=== PATIENT | female | born 1940 | race Caucasian/White ===

== ENCOUNTER 2016-11-05 08:18 | Emergency (ER) | payer OTHER ==
[2016-11-05] MEDS ORDERED: EPINEPHrine Inj (1:1,000) 1 mg/ml amp ONE (08:20)
[2016-11-05] MEDS ORDERED: DEXAMETHASONE PF 10 MG/1 ML VIAL ONE (08:21)
[2016-11-05] MEDS ORDERED: FAMOTIDINE 20 MG/2 ML VIAL IVP ONE (08:22)
[2016-11-05] MEDS ORDERED: diphenhydrAMINE 50 MG/1 ML VIAL ONE (08:22)
[2016-11-05] MEDS ORDERED: IPRATROPIUM/ALBUTEROL SULFATE 3 ML NEB NEB ONE ×2 (08:25→08:27)
[2016-11-05] MEDS ORDERED: Sodium Chloride 0.9% 1,000 ML PRIMARY IV ONE (08:25)
[2016-11-05] MEDS ORDERED: DEXAMETHASONE SOD PHOSPHATE 4 MG/1 ML VIAL IVP ONE (08:25)
[2016-11-05] MEDS ORDERED: EPINEPHrine Inj (1:1,000) 1 mg/ml amp SUBCUT ONE (08:25)
[2016-11-05] MEDS ORDERED: Famotidine Inj 20 MG in Normal Saline Flush 10 ML IVP ONE (08:25)
[2016-11-05] MEDS ORDERED: diphenhydrAMINE 50 MG/1 ML VIAL IVP ONE (08:25)
--- NOTE | 2016-11-05 08:33 | PDOC ---
Allergy Symptoms HPI - General Chief Complaint: Allergic Reaction/Anaphylaxis Stated Complaint: allergic reaction Date Seen by Provider: 11/05/16 Time Seen by Provider: 08:29 Source: POSITIVE: Patient, Spouse Exam Limitations: POSITIVE: Clinical condition Nurse's Notes Reviewed & Considered: Yes - Record Incomplete EMS Report Reviewed & Considered: Verbal - History of Present Illness Initial Comments: Patient comes in acutely with respiratory distress. At 07 100 this morning patient took Mucinex DM and immediately developed difficulty handling her secretions, difficulty swallowing, shortness of breath, and respiratory distress. She has a history of recent CVA and carotid endarterectomy in November 2015, and his unable to communicate adequately the events that have transpired this morning. Her has come in and provided most of the information that I have. She has had recent congestion and cough and she was on the computer looking up medicine that would help was directed toward Mucinex DM, so she obtained that M took a dose this morning with near disasterous results. Patient's face is flushed, she is drooling, grunting, and very anxious. reports she has had a cough. Timing: REPORTS: Abrupt Duration: 1 hour Severity: Severe Associated Symptoms: REPORTS: Sev. 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 Any Prior Injuries Related to Current Complaint?: No - Patient Home Medications Home Medications: Home Medications ALPRAZolam Tab [Xanax Tab] 0.25 mg PO TID 03/19/16 Acetaminophen [Arthritis Pain Relief] 1,300 mg PO BID 03/19/16 Amitriptyline HCl 10 mg PO DAILY 03/19/16 Aspirin [Aspir 81] 0.5 tab PO DAILY 03/19/16 Carboxymethylcell/Glycerin/Pf [Optive Sensitive Eye Drops] 1 each OP DAILY 03/19 Glucosam/Chond/Hyalu/Cf Borate [Move Free Joint Health Tablet] 1 each PO DAILY 03/19/16 Lisinopril [Prinivil Tab] 10 mg PO DAILY 03/19/16 Magnesium Hydroxide [Milk of Magnesia] 3 tsp PO DAILY 03/19/16 Pravastatin Sodium [Pravachol] 40 mg PO DAILY 03/19/16 Psyllium Husk (with Sugar) [Metamucil Packet] 1 tsp PO DAILY 03/19/16 Escitalopram Oxalate [Lexapro] 5 mg PO DAILY 11/05/16 - Patient Allergies Allergies/Adverse Reactions: Allergies Allergy/AdvReac Type Severity Reaction Status Date / Time dextromethorphan HBr Allergy Severe Anaphylaxis Verified 11/05/16 08:34 [From Mucinex DM] guaifenesin [From Mucinex DM] Allergy Severe Anaphylaxis Verified 11/05/16 08:34 minocycline Allergy Unknown UNKNOWN Verified 11/05/16 08:34 Past Medical History - heen HEENT History: Denies History Cardiovascular History: Hypertension, Hyperlipidemia, Other (please comment) Additional Cardiovasular History: CAROTID ENDARTERECTOMY Respiratory History: Denies History Gastrointestinal History: Denies History Genitourinary History: Denies History Endocrine History: Denies History Musculoskeletal History: Arthritis Prosthesis or Implant: No Neurological History: TIA Blood Disorders: Denies History Psychiatric History: Anixety Disorders History of Sexually Transmitted Diseases: No Cancer History: Denies History History of MDRO: No History of Other Communicable Diseases: No Alcohol Use: None Substance Use Type: None Previous Surgical History: Yes Type / Date of Surgery: CAROTID ENDARTERECTOMY, BACK SURGERY, HYSTERECTOMY, LEFT KNEE SURGERY x3 Anesthesia Reactions: No Malignant Hyperthermia: No Significant Family History: No pertinent family hx ROS - Limitations ROS Limitations: Clinical Condition (I am unable to obtain review of systems because of the patient's inability to communicate secondary to her drooling and her CVA.), Physical Impairment Allergy Symptoms Physical Exam - General Appearance General Appearance: POSITIVE: Alert, Anxious, Severe Distress - HEENT Head / Face: POSITIVE: Atraumatic, Normal Inspection, No Facial Swelling, Facial Erythema Eyes: POSITIVE: Inspection Normal, PERRL, EOM's Intact, Eyelids Uninjured Ears: POSITIVE: Ears Normal Inspection, Auricle Normal Nose: POSITIVE: No Apparent Trauma, Nares Normal, Rhinorrhea, Nasal Flaring, Mucosal Erythema Oropharynx: POSITIVE: Airway Intact, Moist Mucous Membranes, Pharyngeal Erythema , Increase Saliva Secretion, Poor Secretion Handling, Drooling, Mucosal Edema Dental: POSITIVE: No Dental Injury - Pupils Pupil Size: 5 mm: Bilateral - Neck Neck: POSITIVE: Normal Inspection, No Apparent Injury - Respiratory Respiratory: POSITIVE: Respiratory Distress, Accessory Muscle Use, Decreased Air Entry, Rhonchi - Cardiovascular Cardiovascular: POSITIVE: Heart Sounds Normal, Tachycardia - Abdomen Abdomen: Soft: (All Quadrants), Normal Bowel Sounds: (All Quadrants), Denies Tenderness: (All Quadrants) - Skin Skin: POSITIVE: Intact, Warm, Erythema - Extremities Extremity: Non-Tender: (All Extremities), Normal ROM: (All Extremities), Normal Inspection: (All Extremities) - Neurological / Psychological Neurological: POSITIVE: Oriented X3 Allergy Symptoms Progress - Results Reviewed by Me Xrays/CTs/US Reviewed by me: Yes Discussed with Radiologist: No Lab Results Reviewed: Yes Lab Results:: Laboratory Results 11/05/16 11/05/16 Range/Units 08:40 08:42 WBC 8.13 (4.8-10.8) 10^3/uL RBC 3.84 L (4.20-5.40) 10^6/uL Hgb 12.5 (12.0-16.0) g/dL Hct 37.8 (37.0-47.0) % MCV 98.4 (81-99) FL MCH 32.6 H (27-31) PG MCHC 33.1 (33-37) g/dL RDW Std Deviation 47.4 (39-50) fL RDW Coeff of Marquis 13.3 (11.5-14.5) % Plt Count 342 (140-350) 10*3/uL MPV 8.9 (7.4-12.2) FL Immature Gran % (Auto) 0.4 (0-5) % Neut % (Auto) 46.9 L (50-80) % Lymph % (Auto) 41.0 (10-50) % [place] % (Auto) 9.3 (5-15) % Eos % (Auto) 1.4 (0-8) % Baso % (Auto) 1.0 (0-1) % Immature Gran # (Auto) 0.03 10*3/UL Neut # (Auto) 3.82 10*3/UL Lymph # (Auto) 3.33 10*3/uL [place] # (Auto) 0.76 (0.3-0.8) 10*3/UL Eos # (Auto) 0.11 10*3/UL Baso # (Auto) 0.08 10*3/UL WBC Morphology Comment Normal morphology (NORM) Plt Morphology Comment Normal morphology (NORM) RBC Morph Comment Normal morphology (NORM) VBG pH 7.30 L (7.32-7.42) VBG pCO2 44 L (45-55) mmHg VBG HCO3 22 (22-26) mmol/L VBG Base Excess -5 L (-2-2) MMOL/L Sodium 138 (135-145) meq/L Potassium 3.3 L (3.8-5.2) meq/L Chloride 104 (98-112) meq/L Carbon Dioxide 23 (23-33) meq/L Anion Gap 11 (5-20) BUN 17 (7-22) mg/dL Creatinine 0.6 (0.50-1.20) mg/dL Estimated GFR (>60 ml/min/1.73m(2)) BUN/Creatinine Ratio 28.33 H (6-20) Glucose 188 H (78-110) mg/dL Calculated Osmolality 292.0 (267-292) mOsm/kg Calcium 8.4 L (8.7-10.7) mg/dL Magnesium 1.8 (1.6-2.4) mg/dL Total Bilirubin 0.7 (0.3-1.2) mg/dL AST 22 (8-39) IU/L ALT 33 (9-52) IU/L Alkaline Phosphatase 80 (38-126) IU/L Total Protein 6.9 (6.1-8.0) g/dL Albumin 3.9 (3.5-4.8) g/dL Globulin 2.9 (2.50-4.10) g/dL Albumin/Globulin Ratio 1.30 (1.3-2.0) mg/g - Treatment Treatment: POSITIVE: Oxygen, IV Fluids, Diphenhydramine, Epinephrine, Dexamethasone, Famotidine, Other (duoneb and saline neb.) - Patient's Progress Pain Medication Addressed: POSITIVE: Not Applicable Re-examine Time: 08:57 (respiratory distess resolved.) Status: POSITIVE: Improved MDM / ED Course: Patient brought back to the emergency department examined, IV was started drawn and sent to lab for studies, portable x-ray was obtained. Medications included subcutaneous epinephrine, Benadryl 50 mg, dexamethasone 10 mg, Pepcid 20 mg. Her symptoms rapidly improved with decreased anxiety, resolution of her facial erythema, resolution of her drooling. Results: Chest x-ray as read by me shows no acute cardiopulmonary decompensation. Laboratory findings: VBG shows pH of 7.30, base excess -5. Assessment: Allergic reaction to Mucinex DM. Plan: Discharge home. - Consult Counseled: POSITIVE: Patient, Family, RE: Lab Results, RE: Radiology Results, RE : DX Patient Care Time - Estimated PCT Patient Care Time (In Minutes): 30 Vital Signs - VS Reviewed Vital Signs Reviewed: Yes Discharge Clinical Impression: Anaphylaxis Discharge Disposition: Discharged to Home Condition: Stable Patient Instructions Given at Discharge: Anaphylaxis (ED)
[2016-11-05] MEDS ORDERED: SODIUM CL 0.9% FOR INH 3 ML NEB NEB ONE (08:35)
[2016-11-05 08:44] LABS: BASOPHILS # (AUTO) 0.08 10*3/UL; EOSINOPHILS % (AUTO) 1.4 % (0-8); HEMATOCRIT 37.8 % (37.0-47.0); HEMOGLOBIN 12.5 g/dL (12.0-16.0); IMM GRAN % (AUTO) 0.4 % (0-5); IMM GRAN# (AUTO) 0.03 10*3/UL; LYMPHOCYTES # (AUTO) 3.33 10*3/uL; MEAN CORPUSCULAR HEMOGLOBIN 32.6 PG (27-31); MEAN CORPUSCULAR HGB CONC 33.1 g/dL (33-37); MEAN PLATELET VOLUME 8.9 FL (7.4-12.2); MONOCYTES # (AUTO) 0.76 10*3/UL (0.3-0.8); MONOCYTES % (AUTO) 9.3 % (5-15); NEUTROPHILS # (AUTO) 3.82 10*3/UL; NEUTROPHILS % (AUTO) 46.9 % (50-80); RDW COEFFICIENT OF VARIATION 13.3 % (11.5-14.5); RED BLOOD COUNT 3.84 10^6/uL (4.20-5.40); WHITE BLOOD COUNT 8.13 10^3/uL (4.8-10.8)
[2016-11-05 08:47] LABS: PLATELET MORPHOLOGY COMMENT NORMAL MORPHOLOGY (NORM)
[2016-11-05 08:57] LABS: BILIRUBIN,TOTAL 0.7 mg/dL (0.3-1.2); BUN/CREATININE RATIO 28.33 (6-20); CALCIUM 8.4 mg/dL (8.7-10.7); CREATININE 0.6 mg/dL (0.50-1.20); MAGNESIUM 1.8 mg/dL (1.6-2.4); POTASSIUM 3.3 meq/L (3.8-5.2); TOTAL PROTEIN 6.9 g/dL (6.1-8.0)
[2016-11-05 09:20] VITALS: RESP 24; TEMP 98.3
--- NOTE | 2016-11-05 10:05 | DI ---
HISTORY: Allergic reaction. FINDINGS/IMPRESSION: Suboptimal inspiration with low lung volumes. Minimal bibasilar atelectasis. Mild elevation of the left hemidiaphragm. Cardiac silhouette is not enlarged. No focal consolidatio n. No pneumothorax.
--- NOTE | 2016-11-05 22:12 | PDOC ---
Transfer of Care - Care Accepted Time Care Transferred: 09:00 Report from Transferring Physician Received: Yes (Dr. Nassar) MDM / ED Course: The patient presented to the emergency department with significant respiratory distress and swelling secondary to an allergic reaction from Mucinex DM. She received subcutaneous epinephrine as well as IV Decadron Benadryl and Pepcid. On arrival the patient was having significant respiratory distress and had notable swelling to her lips and was not controlling her secretions very well. She is significantly better after administration of medications and is back to baseline. She has no visible swelling at the time that I initially saw the patient. Vital signs are also stable at this time. Her blood work is all essentially unremarkable except for mildly elevated PCO2 and low pH on her initial presenting blood gas. Some of her lab work was pending at the time that care was transferred. Home Medications: Home Medications ALPRAZolam Tab [Xanax Tab] 0.25 mg PO TID 03/19/16 Acetaminophen [Arthritis Pain Relief] 1,300 mg PO BID 03/19/16 Amitriptyline HCl 10 mg PO DAILY 03/19/16 Aspirin [Aspir 81] 0.5 tab PO DAILY 03/19/16 Carboxymethylcell/Glycerin/Pf [Optive Sensitive Eye Drops] 1 each OP DAILY 03/19 Glucosam/Chond/Hyalu/Cf Borate [Move Free Joint Health Tablet] 1 each PO DAILY 03/19/16 Lisinopril [Prinivil Tab] 10 mg PO DAILY 03/19/16 Magnesium Hydroxide [Milk of Magnesia] 3 tsp PO DAILY 03/19/16 Pravastatin Sodium [Pravachol] 40 mg PO DAILY 03/19/16 Psyllium Husk (with Sugar) [Metamucil Packet] 1 tsp PO DAILY 03/19/16 Escitalopram Oxalate [Lexapro] 5 mg PO DAILY 11/05/16 predniSONE Tab [Deltasone Tab] 40 mg PO DAILY #10 tab 11/05/16 Allergies/Adverse Reactions: Allergies dextromethorphan HBr [From Mucinex DM] Allergy (Severe, Verified 11/05/16 08:34) Anaphylaxis guaifenesin [From Mucinex DM] Allergy (Severe, Verified 11/05/16 08:34) Anaphylaxis minocycline Allergy (Unknown, Verified 11/05/16 08:34) UNKNOWN Vital Signs Reviewed: Yes Nurse's Notes Reviewed & Considered: Yes - Pending Patient Care Items Pending Patient Care Items: POSITIVE: Labs - Expected Patient Outcome Expected Disposition: POSITIVE: Home - Re-Evaluation of Patient Re-Examine Time:: 09:30 Disposition of Patient: POSITIVE: Discharged Counseled: POSITIVE: Patient, Family, RE: Lab Results, RE: DX, RE: Need for F/U - Results Reviewed Lab Results Reviewed by Me: Yes Lab Results: Laboratory Results 11/05/16 11/05/16 Range/Units 08:40 08:42 WBC 8.13 (4.8-10.8) 10^3/uL RBC 3.84 L (4.20-5.40) 10^6/uL Hgb 12.5 (12.0-16.0) g/dL Hct 37.8 (37.0-47.0) % MCV 98.4 (81-99) FL MCH 32.6 H (27-31) PG MCHC 33.1 (33-37) g/dL RDW Std Deviation 47.4 (39-50) fL RDW Coeff of [place]quis 13.3 (11.5-14.5) % Plt Count 342 (140-350) 10*3/uL MPV 8.9 (7.4-12.2) FL Immature Gran % (Auto) 0.4 (0-5) % Neut % (Auto) 46.9 L (50-80) % Lymph % (Auto) 41.0 (10-50) % [place] % (Auto) 9.3 (5-15) % Eos % (Auto) 1.4 (0-8) % Baso % (Auto) 1.0 (0-1) % Immature Gran # (Auto) 0.03 10*3/UL Neut # (Auto) 3.82 10*3/UL Lymph # (Auto) 3.33 10*3/uL [place] # (Auto) 0.76 (0.3-0.8) 10*3/UL Eos # (Auto) 0.11 10*3/UL Baso # (Auto) 0.08 10*3/UL WBC Morphology Comment Normal morphology (NORM) Plt Morphology Comment Normal morphology (NORM) RBC Morph Comment Normal morphology (NORM) VBG pH 7.30 L (7.32-7.42) VBG pCO2 44 L (45-55) mmHg VBG HCO3 22 (22-26) mmol/L VBG Base Excess -5 L (-2-2) MMOL/L Sodium 138 (135-145) meq/L Potassium 3.3 L (3.8-5.2) meq/L Chloride 104 (98-112) meq/L Carbon Dioxide 23 (23-33) meq/L Anion Gap 11 (5-20) BUN 17 (7-22) mg/dL Creatinine 0.6 (0.50-1.20) mg/dL Estimated GFR (>60 ml/min/1.73m(2)) BUN/Creatinine Ratio 28.33 H (6-20) Glucose 188 H (78-110) mg/dL Calculated Osmolality 292.0 (267-292) mOsm/kg Lactic Acid 2.2 H (0.70-2.10) MMOL/L Calcium 8.4 L (8.7-10.7) mg/dL Magnesium 1.8 (1.6-2.4) mg/dL Total Bilirubin 0.7 (0.3-1.2) mg/dL AST 22 (8-39) IU/L ALT 33 (9-52) IU/L Alkaline Phosphatase 80 (38-126) IU/L Total Protein 6.9 (6.1-8.0) g/dL Albumin 3.9 (3.5-4.8) g/dL Globulin 2.9 (2.50-4.10) g/dL Albumin/Globulin Ratio 1.30 (1.3-2.0) mg/g - Consult Recommendations:: The patient presented with significant allergic reaction/anaphylaxis which has currently resolved clinically. She was advised to discontinue use of Mucinex DM as this was the likely cause of her allergic reaction. She will be continued on a 5 day course of prednisone and was advised to use Benadryl as needed for itching. She is advised return to the emergency room if she develops any recurrent difficulty breathing or facial swelling. Patient Care Time - Estimated PCT Patient Care Time (In Minutes): 10 Vital Signs - VS Reviewed Vital Signs Reviewed: Yes Discharge Clinical Impression: Anaphylaxis Condition: Stable Prescriptions / Orders: predniSONE Tab [Deltasone Tab] 40 mg PO DAILY #10 tab Patient Instructions Given at Discharge: Anaphylaxis (ED) Additional Instructions: The symptoms you're experiencing were secondary to an allergic reaction to the Mucinex DM. This should be listed as an allergy and should not be taken in the future. You have been prescribed prednisone 20 mg tablets, 2 tablets or 40 mg daily for 5 days. In addition you can take Benadryl 25 mg, one or 2 every 4-6 hours as needed for itching. Return to the emergency room if increased difficulty breathing, any worsening or change in symptoms. Follow-up with primary care as needed. Follow Up With: NONE,NONE [Primary Care Provider] -
== END 2016-11-05 10:30 | disposition home or self-care (01) ==
LOC: ER 08:18
DX: T88.6XXA Anaphylactic reaction due to adverse effect of correct drug or medicament properly administered, initial encounter (principal); T48.4X5A Adverse effect of expectorants, initial encounter; R13.19 Other dysphagia; R06.02 Shortness of breath; Z86.73 Personal history of transient ischemic attack (TIA), and cerebral infarction without residual deficits
CPT/HCPCS: 36415 ×2; 71010; 80053; 82803; 83605; 83735; 85025; 94640; 96361; 96374; 96375; 99284 ×2; J1200; J7620; J1100; J7030

== ENCOUNTER 2017-03-01 19:46 | Emergency (ER) | payer OTHER ==
[2017-03-01] MEDS ORDERED: Sodium Chloride 0.9% 1,000 ML PRIMARY IV ONE (20:01)
[2017-03-01] MEDS ORDERED: NORMAL SALINE 10 ML SYRINGE FLUSH IVP PRN (20:01)
[2017-03-01 20:08] LABS: BASOPHILS # (AUTO) 0.13 10*3/UL; BASOPHILS % (AUTO) 1.6 % (0-1); EOSINOPHILS # (AUTO) 0.28 10*3/UL; EOSINOPHILS % (AUTO) 3.3 % (0-8); HEMATOCRIT 40.7 % (37.0-47.0); HEMOGLOBIN 13.1 g/dL (12.0-16.0); LYMPHOCYTES # (AUTO) 2.74 10*3/uL; MEAN CORPUSCULAR HEMOGLOBIN 31.9 PG (27-31); MEAN CORPUSCULAR HGB CONC 32.2 g/dL (33-37); MEAN PLATELET VOLUME 9.2 FL (7.4-12.2); MONOCYTES # (AUTO) 0.91 10*3/UL (0.3-0.8); MONOCYTES % (AUTO) 10.9 % (5-15); NEUTROPHILS # (AUTO) 4.31 10*3/UL; NEUTROPHILS % (AUTO) 51.4 % (50-80); RED BLOOD COUNT 4.11 10^6/uL (4.20-5.40)
[2017-03-01 20:09] LABS: PLATELET MORPHOLOGY COMMENT NORMAL MORPHOLOGY (NORM); RBC MORPHOLOGY COMMENT NORMAL MORPHOLOGY (NORM); WBC MORPHOLOGY COMMENT NORMAL MORPHOLOGY (NORM)
[2017-03-01 20:18] LABS: BLOOD UREA NITROGEN 28 mg/dL (7-22); BUN/CREATININE RATIO 46.66 (6-20); C-REACTIVE PROTEIN < 0.5 mg/dL (0.0-0.9); CALCIUM 9.7 mg/dL (8.7-10.7); MAGNESIUM 2.2 mg/dL (1.6-2.4); SERUM ALBUMIN 4.4 g/dL (3.5-4.8)
--- NOTE | 2017-03-01 20:40 | PDOC ---
General Adult HPI - General Chief Complaint: Respiratory Complaint Stated Complaint: CHOKING Date Seen by Provider: 03/01/17 Time Seen by Provider: 19:55 Source: POSITIVE: Patient, Spouse Exam Limitations: POSITIVE: Other (patient has limited ability to speak--use a note pad to write down respones) - History of Present Illness Initial Comment: The patient is a 76-year-old female who presents to the emergency department by ambulance after a choking episode. Her reports that she has a had a progressively worsening neurologic disorder of some kind that has affected her ability to swallow, affected her speech and general strength. She is seeing multiple specialists and does not have a specific diagnosis at this point. She is scheduled for some specialized testing via a neurologist in [place] on Saturday. She had been scheduled for a feeding tube placement last week however the doctors in [place] wanted to wait until she had this other testing done. Her reports that for the past couple of days she has not really been able to tolerate any type of solid foods very well. She has been sipping Ensure. He tried giving her a little bit of macaroni and cheese and she developed a choking episode. She was having a difficult time breathing and EMS was called. By the time EMS arrived she had suction herself and seemed to be breathing better. She states that she still has a slight foreign body sensation in her throat however she states that she gets this quite frequently even baseline. She denies any current pain or any other associated complaints. Have you received a tetanus shot in the past 10 years?: Unknown - Patient Home Medications Home Medications: Home Medications Acetaminophen [Arthritis Pain Relief] 1,300 mg PO BID 03/19/16 Amitriptyline HCl 10 mg PO DAILY 03/19/16 Aspirin [Aspir 81] 0.5 tab PO DAILY 03/19/16 Carboxymethylcell/Glycerin/Pf [Optive Sensitive Eye Drops] 1 each OP DAILY 03/19 Glucosam/Chond/Hyalu/Cf Borate [Move Free Joint Health Tablet] 1 each PO DAILY 03/19/16 Lisinopril [Prinivil Tab] 10 mg PO DAILY 03/19/16 Magnesium Hydroxide [Milk of Magnesia] 3 tsp PO DAILY 03/19/16 Escitalopram Oxalate [Lexapro] 5 mg PO DAILY 11/05/16 - Patient Allergies Allergies/Adverse Reactions: Allergies Allergy/AdvReac Type Severity Reaction Status Date / Time dextromethorphan HBr Allergy Severe Anaphylaxis Verified 03/01/17 20:07 [From Mucinex DM] guaifenesin [From Mucinex DM] Allergy Severe Anaphylaxis Verified 03/01/17 20:07 minocycline Allergy Unknown UNKNOWN Verified 03/01/17 20:07 Past Medical History - heen HEENT History: Denies History Additional HEENT History: WEARS GLASSES Cardiovascular History: Hypertension, Hyperlipidemia, Other (please comment) Additional Cardiovasular History: CAROTID ENDARTERECTOMY Respiratory History: Denies History Gastrointestinal History: Denies History Genitourinary History: Denies History Endocrine History: Denies History Musculoskeletal History: Arthritis Prosthesis or Implant: No Neurological History: TIA Blood Disorders: Denies History Psychiatric History: Anxiety Disorders History of Sexually Transmitted Diseases: No Cancer History: Denies History History of MDRO: No History of Other Communicable Diseases: No Alcohol Use: None Substance Use Type: None Previous Surgical History: Yes Type / Date of Surgery: CAROTID ENDARTERECTOMY, BACK SURGERY, HYSTERECTOMY, LEFT KNEE SURGERY x3 Anesthesia Reactions: No Malignant Hyperthermia: No Significant Family History: No pertinent family hx Past Medical History Reviewed: Reviewed - No Changes ROS - Limitations ROS Limitations: Other (please comment) (Patient has limited ability to speak, she does answer questions using a note pad and yes no answers) General Adult Progress - Results Reviewed by me Xrays/CTs/US Reviewed by me: Yes Radiology Findings: Portable chest x-ray shows normal lung jason, no acute abnormalities. Lab Results Reviewed: Yes Lab Results:: Laboratory Results 03/01/17 Range/Units 20:00 WBC 8.38 (4.8-10.8) 10^3/uL RBC 4.11 L (4.20-5.40) 10^6/uL Hgb 13.1 (12.0-16.0) g/dL Hct 40.7 (37.0-47.0) % MCV 99.0 (81-99) FL MCH 31.9 H (27-31) PG MCHC 32.2 L (33-37) g/dL RDW Std Deviation 45.3 (39-50) fL RDW Coeff of Marquis 12.8 (11.5-14.5) % Plt Count 333 (140-350) 10*3/uL MPV 9.2 (7.4-12.2) FL Immature Gran % (Auto) 0.1 (0-5) % Neut % (Auto) 51.4 (50-80) % Lymph % (Auto) 32.7 (10-50) % [place] % (Auto) 10.9 (5-15) % Eos % (Auto) 3.3 (0-8) % Baso % (Auto) 1.6 H (0-1) % Immature Gran # (Auto) 0.01 10*3/UL Neut # (Auto) 4.31 10*3/UL Lymph # (Auto) 2.74 10*3/uL [place] # (Auto) 0.91 H (0.3-0.8) 10*3/UL Eos # (Auto) 0.28 10*3/UL Baso # (Auto) 0.13 10*3/UL WBC Morphology Comment Normal morphology (NORM) Plt Morphology Comment Normal morphology (NORM) RBC Morph Comment Normal morphology (NORM) Sodium 141 (135-145) meq/L Potassium 4.4 (3.8-5.2) meq/L Chloride 101 (98-112) meq/L Carbon Dioxide 27 (23-33) meq/L Anion Gap 13 (5-20) BUN 28 H (7-22) mg/dL Creatinine 0.6 (0.50-1.20) mg/dL Estimated GFR (>60 ml/min/1.73m(2)) BUN/Creatinine Ratio 46.66 H (6-20) Glucose 140 H (78-110) mg/dL Calculated Osmolality 299.0 H (267-292) mOsm/kg Calcium 9.7 (8.7-10.7) mg/dL Magnesium 2.2 (1.6-2.4) mg/dL Total Bilirubin 0.4 (0.3-1.2) mg/dL AST 50 H (8-39) IU/L ALT 29 (9-52) IU/L Alkaline Phosphatase 97 (38-126) IU/L C-Reactive Protein < 0.5 (0.0-0.9) mg/dL Total Protein 8.0 (6.1-8.0) g/dL Albumin 4.4 (3.5-4.8) g/dL Globulin 3.6 (2.50-4.10) g/dL Albumin/Globulin Ratio 1.20 L (1.3-2.0) mg/g - Patient's Progress MDM / ED Course: By the time the patient arrived here in the emergency department she stated she was doing better. She still had some mild sensation that there might be something in her throat. Portable chest x-ray is unremarkable, oxygenation is good and she has good breath sounds bilaterally. Her lab work is essentially unremarkable except for mild dehydration. She did receive a 1 L bolus of normal saline. After labs and x-ray were completed the patient stated that she felt back to baseline. She was given some Ensure and was able to sit this without any problems and swallow it. At this point it appears that she had a choking episode likely secondary to her dysphasia. This seems to have resolved and she appears to be clinically stable at this time. She is scheduled for some specialized neurologic testing on Saturday which the neurologist wanted completed before she had a feeding tube placed. She was advised not to try any solid foods here over the weekend. She will continue Ensure for nutritional support. She is advised return to the emergency room she develops increased difficulty breathing, dehydration, fever or productive cough, any worsening or change in symptoms. - Consult Counseled: POSITIVE: Patient, Family, RE: Lab Results, RE: Radiology Results, RE : DX, RE: Need for F/U Patient Care Time - Estimated PCT Patient Care Time (In Minutes): 30 Vital Signs - VS Reviewed Vital Signs Reviewed: Yes Discharge Clinical Impression: Choking episode, Dysphagia Discharge Disposition: Discharged to Home Condition: Fair Patient Instructions Given at Discharge: Dysphagia (ED) Additional Instructions: The choking episode seems to have resolved. Her oxygenation is normal and her chest x-ray appears clear. She is able to swallow ensure at baseline levels. Recommend avoiding any attempts at solid foods here over the weekend. Continue nutritional support with ensure. Return to the emergency room if increased difficulty breathing, fever, productive cough, dehydration, any worsening or change in symptoms. Otherwise keep your appointment with the neurologist in [place] on Saturday for further specialized testing. She will likely need to consider a feeding tube given the degree of her swallowing difficulty and recent worsening. Follow Up With: NONE,NONE [Primary Care Provider] -
[2017-03-01 21:04] VITALS: RESP 18; TEMP 97.9
--- NOTE | 2017-03-02 12:14 | DI ---
AP CHEST X-RAY, 03/01/2017 7:01 PM : Clinical History: Choking episode Previous Exam: 11/05/2016. There is no acute soft tissue or bony abnormality. Heart size is normal. Lungs are clear. Mediastinal structures are normal. There are no pulmonary nodules. Reading: Normal chest x-ray. There has been no interval change.
== END 2017-03-01 20:54 | disposition home or self-care (01) ==
LOC: ER 19:46
DX: R13.19 Other dysphagia (principal); I10 Essential (primary) hypertension; E78.5 Hyperlipidemia, unspecified
CPT/HCPCS: 71010; 80053; 83735; 85025; 86140; 99283

== ENCOUNTER → 2017-03-22 | Outpatient (CLI) | payer OTHER ==
[2017-03-22 12:10] LABS: CALCIUM 9.8 mg/dL (8.7-10.7); SERUM ALBUMIN 3.8 g/dL (3.5-4.8)
== END ==
LOC: LAB 11:30
PROVIDERS: ATTEND Surgery
DX: R13.19 Other dysphagia (principal); G12.21 Amyotrophic lateral sclerosis
CPT/HCPCS: 36415; 80053

== ENCOUNTER → 2017-03-29 | Outpatient (CLI) | payer OTHER ==
[2017-03-29 13:32] LABS: BLOOD UREA NITROGEN 21 mg/dL (7-22); CALCIUM 9.2 mg/dL (8.7-10.7); SERUM ALBUMIN 3.7 g/dL (3.5-4.8)
== END ==
LOC: LAB 13:02
PROVIDERS: ATTEND Surgery
DX: R13.19 Other dysphagia (principal); G12.21 Amyotrophic lateral sclerosis
CPT/HCPCS: 36415; 80053

== ENCOUNTER → 2017-04-17 | Outpatient (CLI) | payer OTHER ==
[2017-04-17 15:21] LABS: BASOPHILS # (AUTO) 0.07 10*3/UL; BASOPHILS % (AUTO) 0.9 % (0-1); EOSINOPHILS # (AUTO) 0.18 10*3/UL; EOSINOPHILS % (AUTO) 2.4 % (0-8); HEMATOCRIT 38.6 % (37.0-47.0); HEMOGLOBIN 12.4 g/dL (12.0-16.0); LYMPHOCYTES # (AUTO) 1.86 10*3/uL; MEAN CORPUSCULAR HEMOGLOBIN 31.7 PG (27-31); MEAN CORPUSCULAR HGB CONC 32.1 g/dL (33-37); MEAN CORPUSCULAR VOLUME 98.7 FL (81-99); MEAN PLATELET VOLUME 9.2 FL (7.4-12.2); MONOCYTES # (AUTO) 0.85 10*3/UL (0.3-0.8); MONOCYTES % (AUTO) 11.2 % (5-15); NEUTROPHILS % (AUTO) 60.7 % (50-80); RED BLOOD COUNT 3.91 10^6/uL (4.20-5.40)
[2017-04-17 15:23] LABS: PLATELET MORPHOLOGY COMMENT NORMAL MORPHOLOGY (NORM); RBC MORPHOLOGY COMMENT NORMAL MORPHOLOGY (NORM); WBC MORPHOLOGY COMMENT NORMAL MORPHOLOGY (NORM)
[2017-04-17 15:30] LABS: CALCIUM 8.9 mg/dL (8.7-10.7); SERUM ALBUMIN 3.9 g/dL (3.5-4.8)
== END ==
LOC: LAB 15:06
PROVIDERS: ATTEND Internal Medicine
DX: Z79.899 Other long term (current) drug therapy (principal)
CPT/HCPCS: 36415; 80053; 85025

== ENCOUNTER 2017-05-05 10:43 | Emergency (ER) | payer OTHER ==
[2017-05-05] MEDS ORDERED: ALBUTEROL SULFATE 2.5 MG/3 ML NEB ONE ×2 (10:55→11:01)
[2017-05-05] MEDS ORDERED: NORMAL SALINE 10 ML SYRINGE FLUSH IVP PRN (10:55)
[2017-05-05] MEDS ORDERED: Sodium Chloride 0.9% 1,000 ML PRIMARY IV ONE (10:55)
[2017-05-05 11:12] LABS: BASOPHILS # (AUTO) 0.12 10*3/UL; BASOPHILS % (AUTO) 1.5 % (0-1); EOSINOPHILS # (AUTO) 0.13 10*3/UL; EOSINOPHILS % (AUTO) 1.6 % (0-8); HEMOGLOBIN 14.1 g/dL (12.0-16.0); LYMPHOCYTES # (AUTO) 2.15 10*3/uL; MEAN CORPUSCULAR HEMOGLOBIN 31.2 PG (27-31); MEAN CORPUSCULAR VOLUME 97.3 FL (81-99); MEAN PLATELET VOLUME 9.3 FL (7.4-12.2); MONOCYTES # (AUTO) 0.87 10*3/UL (0.3-0.8); MONOCYTES % (AUTO) 10.9 % (5-15); NEUTROPHILS # (AUTO) 4.66 10*3/UL; NEUTROPHILS % (AUTO) 58.6 % (50-80); PLATELET MORPHOLOGY COMMENT NORMAL MORPHOLOGY (NORM); RBC MORPHOLOGY COMMENT NORMAL MORPHOLOGY (NORM); RED BLOOD COUNT 4.52 10^6/uL (4.20-5.40); WBC MORPHOLOGY COMMENT NORMAL MORPHOLOGY (NORM)
[2017-05-05] MEDS ORDERED: SODIUM CL 0.9% FOR INH 3 ML NEB NEB ONE (11:16)
[2017-05-05 11:25] VITALS: RESP 30; TEMP 98
[2017-05-05 11:52] LABS: C-REACTIVE PROTEIN 1.1 mg/dL (0.0-0.9); CALCIUM 8.7 mg/dL (8.7-10.7); SERUM ALBUMIN 3.8 g/dL (3.5-4.8)
--- NOTE | 2017-05-05 12:03 | DI ---
AP CHEST X-RAY, 05/05/2017 9:55 AM : Clinical History: Cough. Difficulty breathing. Previous Exam: 03/01/2017. The film is obtained in a lordotic projection. There is no acute soft tissue or bony abnormality. Hea rt size is normal. Lungs are clear. Mediastinal structures are normal. There are no pulmonary nodules . Reading: Normal chest x-ray. There has been no interval change.
--- NOTE | 2017-05-05 16:03 | PDOC ---
Dyspnea HPI - General Chief Complaint: Respiratory Complaint Stated Complaint: HAVING TROUBLE BREATHING Date Seen by Provider: 05/05/17 Time Seen by Provider: 10:55 Source: POSITIVE: Patient, Spouse Exam Limitations: POSITIVE: Other (Patient cannot verbalize however is able to write and shake her head yes no) Treatment Prior to Arrival: REPORTS: None Nurse's Notes Reviewed & Considered: Yes - History of Present Illness Initial Comments: The patient is a 76-year-old female with a recent diagnosis of bulbar ALS who presents to the emergency department with increased difficulty breathing. Her reports that she coughed up some thick phlegm and subsequently developed difficulty breathing. She states that she feels like she is not getting a good breath and she has some rattling in her upper airway. She denies chest pain, fevers or chills or any other associated symptoms. She was recently diagnosed with bulbar ALS and has a PEG tube in place. She has been on several different medications to try and control her secretions however nothing seems to have helped. She does have suction at home however they do not do deep suctioning. - Patient Home Medications Home Medications: Home Medications Amitriptyline HCl 10 mg PO DAILY 03/19/16 Carboxymethylcell/Glycerin/Pf [Optive Sensitive Eye Drops] 1 each OP DAILY 03/19 Acetaminophen Liq [Tylenol Liq] 1,500 mg PO BID PRN 05/05/17 Amoxicillin/K Clav Susp [Augmentin Susp] 800 mg PEG BID #140 ml 05/05/17 Amoxicillin/K Clav Susp [Augmentin Susp] 800 mg PO BID #140 ml 05/05/17 - Patient Allergies Allergies/Adverse Reactions: Allergies Allergy/AdvReac Type Severity Reaction Status Date / Time minocycline Allergy Unknown UNKNOWN Verified 05/05/17 10:56 Past Medical History - heen HEENT History: Denies History Additional HEENT History: WEARS GLASSES Cardiovascular History: Hypertension, Hyperlipidemia, Other (please comment) Additional Cardiovasular History: CAROTID ENDARTERECTOMY Respiratory History: Denies History Gastrointestinal History: Denies History Genitourinary History: Denies History Endocrine History: Denies History Musculoskeletal History: Arthritis Prosthesis or Implant: No Additional Musculoskeletal History: ALS Neurological History: TIA, Other (please comment) Additional Neurological History: ALS Blood Disorders: Denies History Psychiatric History: Anxiety Disorders History of Sexually Transmitted Diseases: No Obstetrical History: Denies History Cancer History: Denies History In Past Year Been Physically Harmed or Verbally Threatened: No History of MDRO: No History of Other Communicable Diseases: No Tobacco Use: Never Smoker Alcohol Use: None Substance Use Type: None Previous Surgical History: Yes Type / Date of Surgery: CAROTID ENDARTERECTOMY, BACK SURGERY, HYSTERECTOMY, LEFT KNEE SURGERY x3 Anesthesia Reactions: No Malignant Hyperthermia: No Significant Family History: No pertinent family hx Past Medical History Reviewed: Reviewed - No Changes ROS - Limitations ROS Limitations: No Limitations Constitution: DENIES: Chills, Fever Cardiovascular: DENIES: Chest Pain Respiratory: REPORTS: Cough Productive, Shortness Of Breath. DENIES: Wheezing Neurological: DENIES: Headache Gastrointestinal: REPORTS: Denies GI Symptoms Dyspnea Physical Exam - General Appearance General Appearance: REPORTS: Alert, Cooperative, No Acute Distress - HEENT HEENT: POSITIVE: Head Inspection Nml, Eyes Inspection Nml, Ears Inspection Nml - Neck Neck: REPORTS: Normal Inspection - Respiratory Respiratory: REPORTS: Other (She does have upper airway rhonchi, respirations are unlabored) - Cardiovascular Cardiovascular: REPORTS: Regular Rate and Rhythm, Heart Sounds Normal Peripheral Pulses: Dorsalis-pedis (R): 2+, Dorsalis-pedis (L): 2+ - Abdomen Abdomen: Soft: (All Quadrants), Denies Tenderness: (All Quadrants), No Distention: (All Quadrants) - Extremities Extremity: Normal ROM: (All Extremities), Normal Inspection: (All Extremities) Dyspnea Progress - Results Reviewed by me Xrays/CTs/US Reviewed by me: Yes Discussed with Radiologist: Yes Radiology Findings: Chest x-ray is normal per radiologist. Lab Results Reviewed: Yes Lab Results:: Laboratory Results 05/05/17 Range/Units 11:08 WBC 7.96 (4.8-10.8) 10^3/uL RBC 4.52 (4.20-5.40) 10^6/uL Hgb 14.1 (12.0-16.0) g/dL Hct 44.0 (37.0-47.0) % MCV 97.3 (81-99) FL MCH 31.2 H (27-31) PG MCHC 32.0 L (33-37) g/dL RDW Std Deviation 47.2 (39-50) fL RDW Coeff of Marquis 13.4 (11.5-14.5) % Plt Count 353 H (140-350) 10*3/uL MPV 9.3 (7.4-12.2) FL Immature Gran % (Auto) 0.4 (0-5) % Neut % (Auto) 58.6 (50-80) % Lymph % (Auto) 27.0 (10-50) % Wake % (Auto) 10.9 (5-15) % Eos % (Auto) 1.6 (0-8) % Baso % (Auto) 1.5 H (0-1) % Immature Gran # (Auto) 0.03 10*3/UL Neut # (Auto) 4.66 10*3/UL Lymph # (Auto) 2.15 10*3/uL Wake # (Auto) 0.87 H (0.3-0.8) 10*3/UL Eos # (Auto) 0.13 10*3/UL Baso # (Auto) 0.12 10*3/UL WBC Morphology Comment Normal morphology (NORM) Plt Morphology Comment Normal morphology (NORM) RBC Morph Comment Normal morphology (NORM) D-Dimer 0.65 H (0.00-0.59) mg/L Sodium 140 (135-145) meq/L Potassium 4.4 (3.8-5.2) meq/L Chloride 104 (98-112) meq/L Carbon Dioxide 26 (23-33) meq/L Anion Gap 10 (5-20) BUN 22 (7-22) mg/dL Creatinine 0.5 (0.50-1.20) mg/dL Estimated GFR (>60 ml/min/1.73m(2)) BUN/Creatinine Ratio 44.00 H (6-20) Glucose 109 (78-110) mg/dL Calculated Osmolality 293.0 H (267-292) mOsm/kg Lactic Acid 1.7 (0.70-2.10) MMOL/L Calcium 8.7 (8.7-10.7) mg/dL Magnesium 2.0 (1.6-2.4) mg/dL Total Bilirubin 0.3 (0.3-1.2) mg/dL AST 26 (8-39) IU/L ALT 34 (9-52) IU/L Alkaline Phosphatase 106 (38-126) IU/L C-Reactive Protein 1.1 H (0.0-0.9) mg/dL Total Protein 6.9 (6.1-8.0) g/dL Albumin 3.8 (3.5-4.8) g/dL Globulin 3.1 (2.50-4.10) g/dL Albumin/Globulin Ratio 1.20 L (1.3-2.0) mg/g - Patient's Progress MDM / ED Course: On arrival the patient did have rhonchi that appeared to be originating from her upper airway. She did receive an albuterol neb treatment and also had some deep suctioning per respiratory which did help significantly. Her chest x-ray is clear. Her blood work is all essentially unremarkable. At this time it appears that she likely is aspirating secretions. She does not have any evidence of pneumonitis or pneumonia however it does seem that she likely aspirated this morning. She is feeling significantly better after suctioning. She is considered stable for discharge home. She was started on Augmentin 800 mg twice a day per PEG tube for 7 days for treatment of potential aspiration. She will return to the emergency room if she develops increased shortness of breath, fever, any worsening or change in symptoms. She is advised follow-up with primary care in 3-5 days. - Consult Counseled: POSITIVE: Patient, RE: Lab Results, RE: Radiology Results, RE: DX, RE : Need for F/U Patient Care Time - Estimated PCT Patient Care Time (In Minutes): 35 Vital Signs - Recent Vital Signs Vital Signs: Vital Signs (Last 8 hours) Temp Pulse Resp BP Pulse Ox 05/05/17 10:55 98 F 98 30 H 141/69 98 - VS Reviewed Vital Signs Reviewed: Yes Discharge Clinical Impression: Aspiration into airway, Amyotrophic lateral sclerosis Discharge Disposition: Discharged to Home Condition: Stable Prescriptions / Orders: Amoxicillin/K Clav Susp [Augmentin Susp] 800 mg PO BID #140 ml Amoxicillin/K Clav Susp [Augmentin Susp] 800 mg PEG BID #140 ml Additional Instructions: It is suspected that Khushi has aspirated some secretions into her airway. Her airway was suctioned and she appears to be doing well at this time. Oxygen levels are normal. It is unclear if any of this was aspirated into the lower lung. None of this was visible on the x-ray currently however she will be started on Augmentin 400 mg per teaspoon, 2 teaspoons (10 mL) twice a day for 7 days. Recommend returning to the emergency room if increased difficulty breathing, fever, any worsening or change in symptoms. Follow-up with primary care in 3-5 days. Follow Up With: MICHELLE MANCIA [Primary Care Provider] -
== END 2017-05-05 12:22 | disposition home or self-care (01) ==
LOC: ER 10:43
DX: T17.818A Gastric contents in other parts of respiratory tract causing other injury, initial encounter (principal); G12.21 Amyotrophic lateral sclerosis; R05 Cough; R06.02 Shortness of breath; R06.00 Dyspnea, unspecified
CPT/HCPCS: 71010; 80053; 83605; 83735; 85025; 85379; 86140; 94640; 99283

== ENCOUNTER 2017-05-13 09:16 | Emergency (ER) | payer OTHER ==
[2017-05-13] MEDS ORDERED: NORMAL SALINE 10 ML SYRINGE FLUSH IVP PRN (09:31)
[2017-05-13] MEDS ORDERED: Sodium Chloride 0.9% 1,000 ML PRIMARY IV ONE (09:31)
--- NOTE | 2017-05-13 09:37 | PDOC ---
Nausea/Vomiting/Diarrhea HPI - General Chief Complaint: Nausea / Vomiting / Diarrhea Stated Complaint: diarrhea/on abx Date Seen by Provider: 05/13/17 Time Seen by Provider: 09:25 Source: POSITIVE: Patient, Spouse, Other (Patient has bulbar ALS and has significant speech difficulties, she is able to write when she needs to) Nurse's Notes Reviewed & Considered: Yes - History of Present Illness Initial Comments: The patient is a 76-year-old female who presents to the emergency department with diarrhea and lightheadedness. She was seen in the emergency department just over a week ago with aspiration. She had been treated with Augmentin. About 5 days ago she developed significant loose watery diarrhea while taking the Augmentin. They decided to discontinue the Augmentin a little bit early on Saturday of last week. She has continued to have loose watery stools 3 or 4 times a day. She also reports "rumbling" in her abdomen. She denies any pain or cramping. She has not had any fevers or chills. She does have some increased lightheadedness and weakness. She denies blood in the stool or any other associated symptoms. She does have bulbar ALS and has significant issues with swallowing. She does have a PEG tube. - Patient Home Medications Home Medications: Home Medications Amitriptyline HCl 10 mg PO DAILY 03/19/16 Carboxymethylcell/Glycerin/Pf [Optive Sensitive Eye Drops] 1 each OP DAILY 03/19 Acetaminophen Liq [Tylenol Liq] 1,500 mg PO BID PRN 05/05/17 Ranitidine HCl [Zantac] 50 mg PO BID 05/13/17 - Patient Allergies Allergies/Adverse Reactions: Allergies Allergy/AdvReac Type Severity Reaction Status Date / Time minocycline Allergy Intermediate HIVES Verified 05/13/17 09:25 Past Medical History - heen HEENT History: Denies History Additional HEENT History: WEARS GLASSES Cardiovascular History: Hypertension, Hyperlipidemia, Other (please comment) Additional Cardiovasular History: CAROTID ENDARTERECTOMY Respiratory History: Denies History Gastrointestinal History: Denies History Genitourinary History: Denies History Endocrine History: Denies History Musculoskeletal History: Arthritis Prosthesis or Implant: No Additional Musculoskeletal History: ALS Neurological History: TIA, Other (please comment) Additional Neurological History: ALS Blood Disorders: Denies History Psychiatric History: Anxiety Disorders History of Sexually Transmitted Diseases: No Female Reproductive History: Denies History Cancer History: Denies History In Past Year Been Physically Harmed or Verbally Threatened: No History of MDRO: No History of Other Communicable Diseases: No Tobacco Use: Never Smoker Alcohol Use: None Substance Use Type: None Previous Surgical History: Yes Type / Date of Surgery: CAROTID ENDARTERECTOMY, BACK SURGERY, HYSTERECTOMY, LEFT KNEE SURGERY x3 Anesthesia Reactions: No Malignant Hyperthermia: No Significant Family History: No pertinent family hx Past Medical History Reviewed: Reviewed - No Changes ROS - Limitations ROS Limitations: No Limitations Constitution: REPORTS: Denies Symptoms Cardiovascular: DENIES: Denies Cardiac Symptoms Respiratory: REPORTS: Other (She reports that she has not developed any worsening productive cough or difficulty breathing since her aspiration episode last week). DENIES: Denies Resp Symptoms Gastrointestinal: REPORTS: Nausea, Diarrhea. DENIES: Abdominal Pain, Vomitting , Black Stools, Bloody Stools Musculoskeletal: REPORTS: Denies MS Symptoms Skin: DENIES: Rash Nausea/Vomiting/Diarrhea Exam - General Appearance General Appearance: POSITIVE: Alert, Cooperative, No Acute Distress - HEENT HEENT: POSITIVE: Dry Mucous Membranes - Neck Neck: POSITIVE: Supple - Respiratory Respiratory: POSITIVE: No Respiratory Distress, Breath Sounds Normal - Cardiovascular Cardiovascular: POSITIVE: Regular Rate and Rhythm, Heart Sounds Normal - Abdomen Abdomen: Soft: (All Quadrants), Denies Tenderness: (All Quadrants), No Distention: (All Quadrants) - Skin Skin: POSITIVE: Intact, No Rash - Extremities Extremity: Normal ROM: (All Extremities), Normal Inspection: (All Extremities) - Neurological / Psychological Neurological: POSITIVE: Other (Patient has limited speech, no focal neurologic deficits otherwise) N/V/D Progress - Results Reviewed by me Lab Results:: Laboratory Results 05/13/17 Range/Units 09:37 WBC 13.15 H (4.8-10.8) 10^3/uL RBC 4.28 (4.20-5.40) 10^6/uL Hgb 13.1 (12.0-16.0) g/dL Hct 41.6 (37.0-47.0) % MCV 97.2 (81-99) FL MCH 30.6 (27-31) PG MCHC 31.5 L (33-37) g/dL RDW Std Deviation 46.0 (39-50) fL RDW Coeff of Marquis 13.2 (11.5-14.5) % Plt Count 328 (140-350) 10*3/uL MPV 9.4 (7.4-12.2) FL Immature Gran % (Auto) 0.3 (0-5) % Neut % (Auto) 88.6 H (50-80) % Lymph % (Auto) 5.0 L (10-50) % Braxton % (Auto) 5.1 (5-15) % Eos % (Auto) 0.7 (0-8) % Baso % (Auto) 0.3 (0-1) % Immature Gran # (Auto) 0.04 10*3/UL Neut # (Auto) 11.65 10*3/UL Lymph # (Auto) 0.66 10*3/uL Braxton # (Auto) 0.67 (0.3-0.8) 10*3/UL Eos # (Auto) 0.09 10*3/UL Baso # (Auto) 0.04 10*3/UL WBC Morphology Comment Normal morphology (NORM) Plt Morphology Comment Normal morphology (NORM) RBC Morph Comment Normal morphology (NORM) Sodium 137 (135-145) meq/L Potassium 4.2 (3.8-5.2) meq/L Chloride 104 (98-112) meq/L Carbon Dioxide 26 (23-33) meq/L Anion Gap 7 (5-20) BUN 20 (7-22) mg/dL Creatinine 0.5 (0.50-1.20) mg/dL Estimated GFR (>60 ml/min/1.73m(2)) BUN/Creatinine Ratio 40.00 H (6-20) Glucose 147 H (78-110) mg/dL Calculated Osmolality 289.0 (267-292) mOsm/kg Calcium 9.1 (8.7-10.7) mg/dL Magnesium 1.9 (1.6-2.4) mg/dL Total Bilirubin 0.5 (0.3-1.2) mg/dL AST 53 H (8-39) IU/L ALT 38 (9-52) IU/L Alkaline Phosphatase 101 (38-126) IU/L C-Reactive Protein 0.9 (0.0-0.9) mg/dL Total Protein 7.5 (6.1-8.0) g/dL Albumin 4.1 (3.5-4.8) g/dL Globulin 3.4 (2.50-4.10) g/dL Albumin/Globulin Ratio 1.20 L (1.3-2.0) mg/g - Patient's Progress MDM / ED Course: An IV was established and she did receive 1 L bolus of normal saline. She was feeling better after administration of IV fluids. Her pulse also came down from the low 100s down into the 80s. Her blood work is all essentially unremarkable except for a mildly elevated white blood cell count and elevated BUN/creatinine ratio consistent with dehydration. Her diarrhea is most likely associated with recent use of Augmentin. She was unable to provide a stool study to rule out C. difficile or other bacterial cause. She elected to collect this at home and bring it back to the lab. Recommend probiotics and increase in free fluid through the PEG tube. Return to the emergency room if increased dehydration, increased pain, any worsening or change in symptoms. Recommend follow-up with primary care in 3-5 days. - Consult Counseled: POSITIVE: Patient, Family, RE: Lab Results, RE: DX, RE: Need for F/U Patient Care Time - Estimated PCT Patient Care Time (In Minutes): 25 Vital Signs - Recent Vital Signs Vital Signs: Vital Signs (Last 8 hours) Temp Pulse Resp BP Pulse Ox 05/13/17 09:32 98.8 F 101 H 18 126/69 100 - VS Reviewed Vital Signs Reviewed: Yes Discharge Clinical Impression: Antibiotic-associated diarrhea, Dehydration Discharge Disposition: Discharged to Home Condition: Stable Patient Instructions Given at Discharge: Dehydration (ED), Acute Diarrhea (ED) Additional Instructions: The diarrhea is most likely being caused by recent antibiotic usage. We will test the stool for other potential bacterial causes and the sample should be brought back to the lab when collected. Results will be given over the phone once available. In the meantime increase free fluid intake if needed. In addition recommend probiotics (acidophilus or lactobacillus) which can be obtained [id number] at the pharmacy. Return to the emergency room if increased dehydration, increased abdominal pain, fever, any worsening or change in symptoms. Follow-up with primary care in 3-5 days. Follow Up With: MACARIO MANCIA [Primary Care Provider] -
[2017-05-13 09:38] VITALS: RESP 18; TEMP 98.8
[2017-05-13 09:41] LABS: BASOPHILS # (AUTO) 0.04 10*3/UL; BASOPHILS % (AUTO) 0.3 % (0-1); EOSINOPHILS # (AUTO) 0.09 10*3/UL; EOSINOPHILS % (AUTO) 0.7 % (0-8); HEMATOCRIT 41.6 % (37.0-47.0); HEMOGLOBIN 13.1 g/dL (12.0-16.0); LYMPHOCYTES # (AUTO) 0.66 10*3/uL; MEAN CORPUSCULAR HEMOGLOBIN 30.6 PG (27-31); MEAN CORPUSCULAR HGB CONC 31.5 g/dL (33-37); MEAN CORPUSCULAR VOLUME 97.2 FL (81-99); MEAN PLATELET VOLUME 9.4 FL (7.4-12.2); MONOCYTES # (AUTO) 0.67 10*3/UL (0.3-0.8); MONOCYTES % (AUTO) 5.1 % (5-15); NEUTROPHILS # (AUTO) 11.65 10*3/UL; NEUTROPHILS % (AUTO) 88.6 % (50-80); RED BLOOD COUNT 4.28 10^6/uL (4.20-5.40)
[2017-05-13 09:44] LABS: PLATELET MORPHOLOGY COMMENT NORMAL MORPHOLOGY (NORM); RBC MORPHOLOGY COMMENT NORMAL MORPHOLOGY (NORM); WBC MORPHOLOGY COMMENT NORMAL MORPHOLOGY (NORM)
[2017-05-13 09:53] LABS: C-REACTIVE PROTEIN 0.9 mg/dL (0.0-0.9); CALCIUM 9.1 mg/dL (8.7-10.7); MAGNESIUM 1.9 mg/dL (1.6-2.4); SERUM ALBUMIN 4.1 g/dL (3.5-4.8)
[2017-05-13] MEDS ORDERED: Sodium Chloride 0.9% 1,000 ML ONE (17:37)
== END 2017-05-13 10:44 | disposition home or self-care (01) ==
LOC: ER 09:16
DX: K52.1 Toxic gastroenteritis and colitis (principal); E86.0 Dehydration; R53.1 Weakness; R42 Dizziness and giddiness; R19.7 Diarrhea, unspecified
CPT/HCPCS: 80053; 83735; 85025; 86140; 96360; 99283; J7030

== ENCOUNTER 2018-04-02 19:42 | Inpatient (IN) ==
[2018-04-02 19:30] LABS: BASOPHILS # (AUTO) 0.04 10*3/UL; BASOPHILS % (AUTO) 0.2 % (0-1); EOSINOPHILS # (AUTO) 0.01 10*3/UL; EOSINOPHILS % (AUTO) 0.1 % (0-8); Hematocrit [HCT] 46.4 % (37.0-47.0); Hemoglobin [HGB] 14.4 g/dL (12.0-16.0); LYMPHOCYTES # (AUTO) 0.73 10*3/uL; MEAN CORPUSCULAR HEMOGLOBIN 31.9 PG (27-31); MEAN CORPUSCULAR VOLUME 102.9 FL (81-99); MEAN PLATELET VOLUME 9.6 FL (7.4-12.2); MONOCYTES # (AUTO) 0.97 10*3/UL (0.3-0.8); NEUTROPHILS # (AUTO) 14.48 10*3/UL; NEUTROPHILS % (AUTO) 88.9 % (50-80); RED BLOOD COUNT 4.51 10^6/uL (4.20-5.40)
--- NOTE | 2018-04-02 19:36 | EKG ---
[address] [address] Measurements Intervals [place] Rate: 95 P: 35 GA: QRS: 40 QRSD: 140 T: -2 QT: 394 QTc: 447 Interpretive Statements SINUS RHYTHM RIGHT BUNDLE BRANCH BLOCK NONSPECIFIC T WAVE ABNORMALITY IN PRECORDIAL LEADS Compared to ECG 03/11/2018 19:51:4 T wave changes less marked Electronically Signed On 04-03-18 15:41:06 MDT by Levi Flores [email or web address]
[2018-04-02 19:40] LABS: BLOOD UREA NITROGEN 19 mg/dL (7-22); BUN/CREATININE RATIO 31.66 (6-20); SERUM ALBUMIN 4.4 g/dL (3.5-4.8)
[~2018-04-02 19:42] MED LIST: Sodium Chloride 0.9% 1,000 ML PRIMARY IV ONE
[2018-04-02 19:43] LABS: PLATELET MORPHOLOGY COMMENT NORMAL MORPHOLOGY (NORM); RBC MORPHOLOGY COMMENT NORMAL MORPHOLOGY (NORM); WBC MORPHOLOGY COMMENT NORMAL MORPHOLOGY (NORM)
--- NOTE | 2018-04-02 19:43 | PDOC ---
Altered Mental Status HPI - General Chief Complaint: Altered Mental Status Stated Complaint: unresponsive but breathing Date Seen by Provider: 04/02/18 Time Seen by Provider: 19:15 Source: POSITIVE: Patient Exam Limitations: POSITIVE: No limitations Nurse's Notes Reviewed & Considered: Yes - History of Present Illness Initial Comments: The patient is a 77-year-old female with a history of bulbar ALS who is brought to the emergency department after her found her unresponsive at home. She was actually just seen here in the emergency department earlier today with complaints of general malaise, nausea with one episode of emesis and possible fever at home. She was afebrile here and all of her lab work, chest x-ray and urinalysis were all unremarkable at that time. She had been given some IV fluids and Zofran here after which she was feeling significantly better. She had been discharged home early this afternoon. She had taken her amitriptyline and Lexapro and subsequently laid down for a nap at approximately 3 PM. Her also took a nap at that time. When he woke up she was still sleeping and he just let her sleep. This evening he went to check on her again and found her slumped over in the chair with some phlegm coming out of her mouth. She was completely unresponsive to him at that time. She was breathing and he could feel a weak pulse. EMS was subsequently called. When they arrived the patient was unresponsive except for some withdrawal to pain. She did not respond to her IV start. Blood sugar was found to be 200. Rhythm strip showed a normal sinus rhythm with a rate in the 90s. Her initial oxygen saturation was registering 40% when they arrived however they did not have a good waveform. She was placed on high flow O2 and transported here to the emergency department. 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 - Patient Home Medications Home Medications: Home Medications Amitriptyline HCl 10 mg PO DAILY 03/19/16 Carboxymethylcell/Glycerin/Pf [Optive Sensitive Eye Drops] 1 ea OP DAILY Acetaminophen Liq [Tylenol Liq] 1,500 mg PO BID PRN 05/05/17 Ranitidine HCl [Zantac] 50 mg PO BID 05/13/17 Escitalopram Oxalate [Lexapro] 10 mg PO DAILY 08/13/17 Ondansetron Odt [Zofran ODT] 4 mg PO Q6H PRN #10 tab.rapdis 04/02/18 - Patient Allergies Allergies/Adverse Reactions: Allergies 3 Allergy/AdvReac Type Severity Reaction Status Date / Time minocycline Allergy Intermediate HIVES Verified 04/02/18 12:25 Past Medical History - heen HEENT History: Denies History Additional HEENT History: WEARS GLASSES Cardiovascular History: Hypertension, Hyperlipidemia, Other (please comment) Additional Cardiovasular History: CAROTID ENDARTERECTOMY Respiratory History: Other (please comment) Additional Respiratory History: PT UNABLE TO SWALLOW DUE TO ALS, HAS DIFFICULTLY CLEARING SECRETIONS, USES SUCTION AT HOME TO MAINTAIN AIRWAY. Gastrointestinal History: Other (please comment) Additional Gastrointestinal History: PEG TUBE PLACED, PT UNABLE TO EAT OR DRINK DUE TO ALS Genitourinary History: Denies History Endocrine History: Denies History Musculoskeletal History: Arthritis, Other (please comment) Prosthesis or Implant: Yes (PEG TUBE) Additional Musculoskeletal History: BULBAR ALS Neurological History: ALS/Mary Kay Gehrig's Disease Additional Neurological History: BULBAR ALS Blood Disorders: Denies History Psychiatric History: Depression, Anxiety Disorders History of Sexually Transmitted Diseases: No Cancer History: Denies History History of MDRO: No History of Other Communicable Diseases: No Alcohol Use: None In the Past 12 Months, Have Used or Abuse Any Substance: None Previous Surgical History: Yes Type / Date of Surgery: LEFT CAROTID ENDARTERECTOMY, BACK SURGERY, HYSTERECTOMY , LEFT KNEE SURGERY x3, BLADDER SLING, CHOLECYSTECTOMY, TONSILLECTOMY, PEG TUBE PLACEMENT Anesthesia Reactions: No Malignant Hyperthermia: No Significant Family History: No pertinent family hx Past Medical History Reviewed: Reviewed - No Changes ROS - Limitations ROS Limitations: Clinical Condition (Further history is currently unobtainable from the patient) Altered Mental Physical Exam - General Appearance General Appearance: POSITIVE: Other (The patient is somewhat responsive, she will open her eyes to verbal stimuli and 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, I do not get any motor function response when she is asked to move her feet) - Neck Neck: POSITIVE: Supple - Respiratory Respiratory: POSITIVE: No Respiratory Distress, Breath Sounds Normal - Cardiovascular CVS: POSITIVE: Regular Rate and Rhythm, Heart Sounds Normal Peripheral Pulses: Dorsalis-pedis (R): 2+, Dorsalis-pedis (L): 2+ - Abdomen Abdomen: Soft: (All Quadrants), No Palpabale Mass: (All Quadrants), No Distention: (All Quadrants) - Skin Skin: POSITIVE: No Rash Altered Mental Status - Results Reviewed By Me Xrays/CTs/US Reviewed: Yes Discussed with Radiologist: Yes Lab Results Reviewed by Me: Yes CBC and BMP: 04/02/18 19:26 04/02/18 19:26 EKG Interpreted/Reviewed By Me:: Yes EKG Interpretation:: POSITIVE: Other (EKG shows significant artifact from tremor , no obvious acute changes and she appears to be in sinus rhythm) - Patient's Progress MDM / ED Course: On arrival the patient's blood pressure is 99/60 and her pulse is in the 90s. Her initial EKG shows a sinus rhythm with artifact from tremor. Her blood sugar in route was 200. She is afebrile here. Her O2 sats are 100% on a nonrebreather. She is starting to become more responsive. Initial venous blood gas shows a pH of 7.2 with a PCO2 of 60. I did have a discussion with the patient's regarding advance directives. She has very clear instructions regarding her wishes not to be placed on a ventilator or be kept alive with any type of mechanical support. He thought that she would be fine with trying some BiPAP. She was placed on BiPAP. Her chest x-ray done here in the emergency department shows no obvious infiltrate or change from chest x-ray earlier today. CT scan of her head shows increased white matter deterioration per radiologist most likely consistent with advancement of her ALS, no acute findings per radiologist. CT of the chest shows no evidence of PE, atelectasis in the lower lung jason, no other acute findings per radiologist. The patient seemed to tolerate the BiPAP well however she was getting somewhat anxious and received Ativan 0.5 mg IV. Her vital signs remained stable here. The exact etiology of her mental status changes is unclear however is thought to be secondary to likely mucus plugging and respiratory compromise which has improved. She does have underlying ALS and her overall prognosis is poor. I did discuss the patient with Dr. White who is agreed to admit the patient. She was started on Rocephin 1 g IV. She was had been done earlier today. - Consult Counseled: POSITIVE: Family, RE: Lab Results, RE: Radiology Results, RE: DX Patient Care Time - Estimated PCT Patient Care Time (In Minutes): 50 Vital Signs - Recent Vital Signs Vital Signs: Vital Signs (Last 8 hours) Temp Pulse Pulse Resp BP BP Pulse Ox 04/02/18 22:03 98 15 120/70 100 04/02/18 22:02 91 8 L 120/70 100 04/02/18 22:01 102 H 4 L 100 04/02/18 22:00 118 H 6 L 100 04/02/18 21:59 108 H 12 100 04/02/18 21:58 121 H 18 100 04/02/18 21:57 86 17 100 04/02/18 21:56 86 17 100 04/02/18 21:55 120 H 15 100 04/02/18 21:54 85 15 100 04/02/18 21:53 86 18 108/65 100 04/02/18 21:52 85 16 108/65 100 04/02/18 21:51 84 16 100 04/02/18 21:50 86 17 100 04/02/18 21:49 86 15 100 04/02/18 21:48 86 16 100 04/02/18 21:47 86 17 100 04/02/18 21:46 85 15 100 04/02/18 21:45 86 17 100 04/02/18 21:44 85 16 100 04/02/18 21:43 86 17 100/65 100 04/02/18 21:42 86 16 100/65 100 04/02/18 21:41 85 17 100 04/02/18 21:40 86 16 100 04/02/18 21:39 84 17 100 04/02/18 21:38 86 9 L 100 04/02/18 21:37 85 13 100 04/02/18 21:36 85 9 L 100 04/02/18 21:35 85 16 100 0518 21:34 85 16 100 04/02/18 21:33 85 16 119/72 100 0518 21:32 85 16 119/72 100 0518 21:31 101 H 16 119/72 100 18 21:30 88 11 L 100 05/30/18 21:29 91 11 L 100 04/02/18 21:28 85 17 100 04/02/18 21:27 85 17 100 04/02/18 21:26 85 17 100 04/02/18 21:25 85 17 100 04/02/18 21:24 86 20 100 04/02/18 21:23 85 16 111/65 100 04/02/18 21:22 85 16 111/65 100 04/02/18 21:21 84 15 111/65 100 04/02/18 21:20 85 16 100 04/02/18 21:19 85 15 100 04/02/18 21:18 85 17 100 04/02/18 21:17 84 16 100 04/02/18 21:16 85 16 100 04/02/18 21:15 84 17 100 04/02/18 21:14 86 5 L 100 04/02/18 19:15 96.8 F 88 16 99/79 100 04/02/18 19:11 88 - VS Reviewed Vital Signs Reviewed: Yes Discharge Clinical Impression: Altered mental status, Respiratory acidosis, ALS (amyotrophic lateral sclerosis ) Discharge Disposition: Admit to Inpatient Condition: Serious Date Decision to Admit to Inpatient: 04/02/18 Time Decision to Admit to Inpatient: 21:15
[2018-04-02] MEDS ORDERED: Sodium Chloride 0.9% 1,000 ML PRIMARY IV ONE (20:12)
[2018-04-02] MEDS ORDERED: LORazepam 2 MG/1 ML VIAL IVP ONE (20:17)
--- NOTE | 2018-04-02 20:21 | DI ---
EXAM: CT Head Without Intravenous Contrast CLINICAL HISTORY: ITS.REASON altered mental status Physician Notes: Tech Comments: TECHNIQUE: Axial computed tomography images of the head/brain without intravenous contrast. COMPARISON: 05/19/16. FINDINGS: Brain: There is extensive bilateral white matter hypoattenuation, which has increased in the interval. This is most pronounced in the frontal and the occipital lobes. Broad differential diagnosis including accelerated hypervascular ischemic change, uncontrolled diabetes and hypertension, demyelination, and posttreatment effect, amongst other possibilities. Recommend MRI to further assess. Recommend IV contrast on that exam. There is no acute intracranial hemorrhage. No mass effect. Bones/joints: Unremarkable. No acute fracture. Soft tissues: Unremarkable. Sinuses: Unremarkable as visualized. No acute sinusitis. Mastoid air cells: Unremarkable as visualized. No mastoid effusion. IMPRESSION: White matter hypoattenuation with differential diagnosis as detailed above. Recommend MRI with contrast to further assess. No intracranial hemorrhage or mass effect.
[2018-04-02 20:31] LABS: VENOUS PH 7.26 (7.32-7.42)
--- NOTE | 2018-04-02 20:32 | DI ---
EXAM: XR Chest, 1 View CLINICAL HISTORY: ITS.REASON confusion Physician Notes: Tech Comments: TECHNIQUE: Frontal view of the chest. COMPARISON: 04/02/18 at 1332 FINDINGS: Lungs: Hypoventilatory exam.. No consolidation. Pleural space: Unremarkable. No pneumothorax. Heart: Unremarkable. No cardiomegaly. Mediastinum: Unremarkable. Bones/joints: Unremarkable. IMPRESSION: Hypoventilatory exam. No clear consolidation or vascular congestion.
[2018-04-02] MEDS ORDERED: cefTRIAXone Inj 1 GM in Sodium Chloride 0.9% 100 ML IV ONE (21:05)
--- NOTE | 2018-04-02 21:28 | DI ---
EXAM: CT Angiography Chest With Intravenous Contrast CLINICAL HISTORY: ITS.REASON hypoxia, elevated d-dimer Physician Notes: Tech Comments: TECHNIQUE: Axial computed tomographic angiography images of the chest with intravenous contrast using pulmonary embolism protocol. MIP reconstructed images were created and reviewed. COMPARISON: No relevant prior studies available. FINDINGS: Pulmonary arteries: No pulmonary embolism. Aorta: Atherosclerosis. No thoracic aortic aneurysm. No dissection. Lungs: Dependent atelectasis Pleural space: Unremarkable. No significant effusion. No pneumothorax. Heart: No significant pericardial effusion. Bones/joints: No acute fracture. No dislocation. Soft tissues: 6 mm calcification in the left thyroid lobe, likely associated with a nodule. Cholecystectomy. Left renal cyst. PEG tube. Lymph nodes: Unremarkable. No enlarged lymph nodes. IMPRESSION: No PE. Dependent atelectasis. 6 mm left thyroid lobe calcification, likely associated with a nodule. Incidental findings as detailed above.
--- NOTE | 2018-04-02 22:42 | PDOC ---
HPI - History of Present Illness Date of Service: 04/02/18 Time of Service: 23:00 Chief Complaint: Unresponsiveness History of Present Illness: This is a 77 years old female with medical history significant for history of bulbar ALS who was brought to the hospital for unresponsiveness. She was brought this morning to the hospital for evaluation because of malaise, nausea and episode of vomiting. She had multiple tests they were nonrevealing she was given some IV fluid, Zofran she felt better and was discharged home. The took her back home he gave her usual medication: Amitriptyline and Lexapro she laid down and had a nap at 3 PM also the said he took nap next to her. When he woke up she was still sleeping but then he went this evening to check on her again and found her slumped over in the chair with some phlegm coming out of her mouth. She was unresponsive the EMS were called the patient was unresponsive when the EMS arrived. Her initial sats were low in the 40% she was placed on high flow oxygen and brought to the ER. Patient was put on nonrebreather. Initial blood gas showed a pH of 7.26 a CO2 of 66. Was put on BiPAP. CT of the head showed advanced ALS changes, chest x- ray did not show infiltrate. She had a CT of the chest which showed no evidence of PE but did show atelectasis at the lower bases. After she was placed on the BiPAP she was somewhat anxious so she was given Ativan and she was admitted. Patient does not speak but she communicate with writing according to the . When I saw her she is sleepy but arousable she follow commands. She denied pain or shortness of breath. No nausea. Past Medical History Medical History: 1. 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 2. History of depression Surgical History: 1. History of cholecystectomy. 2. History of left carotid endarterectomy. 3. Status post the PEG placement. 4. History of hysterectomy. 5. Bladder sling surgery. 6. History of left knee surgery Family History: Reviewed an Not Pertinent Past Social History: Never smoked doesn't drink no drugs. Lives with her was the primary caregiver. Tobacco Use: Never Smoker In the Past 12 Months, Have Used or Abuse Any of the Following Substance: None Alcohol Use: None Medication / Allergies Home Medications: Home Medications 3 Medication Instructions Recorded Confirmed Type Amitriptyline HCl 10 mg PO DAILY 03/19/16 04/02/18 History Carboxymethylcell/Glycerin/Pf 1 ea OP DAILY 03/19/16 04/02/18 History [Optive Sensitive Eye Drops] Acetaminophen Liq [Tylenol Liq] 1,500 mg PO BID PRN 05/05/17 04/02/18 History Ranitidine HCl [Zantac] 50 mg PO BID 05/13/17 04/02/18 History Escitalopram Oxalate [Lexapro] 10 mg PO DAILY 08/13/17 04/02/18 History Ondansetron Odt [Zofran ODT] 4 mg PO Q6H PRN #10 tab.rapdis 04/02/18 Rx Allergies/Adverse Reactions: Allergies 3 Allergy/AdvReac Type Severity Reaction Status Date / Time minocycline Allergy Intermediate HIVES Verified 04/03/18 06:29 Review of Systems - Review of Systems All Systems: Reviewed & No Additional Complaints Except as Stated Exam - Vitals Vital Signs: Vital Signs Temperature 96.8 F Temperature Source Temporal Artery Scan Pulse Rate [Pulse Oximeter] 88 Pulse Rate 98 Respiratory Rate 15 Blood Pressure [Right Arm] 99/79 Blood Pressure 120/70 Pulse Ox 100 Oxygen Flow Rate 15 Oxygen Delivery Method Non-Rebreather Mask Height 5 ft 5 in Weight 170 lb - General Additional General Exam Details: Sleepy but arousable. Patient does not speak. She follow-up commands though - Head Head Exam: Normal Inspection - Eye Eye Exam: POSITIVE: Normal Appearance - ENT ENT Exam: POSITIVE: Normal Exam - Neck Neck Exam: Normal Inspection - Respiratory Respiratory Exam: POSITIVE: Clear to Auscultation - Bilaterally - Cardiovascular Cardiovascular Exam: POSITIVE: RRR - GI/Abdominal GI/Abdominal Exam: POSITIVE: Normal Bowel Sounds, Non Tender, Non Distended, Soft, No Organomegaly Additional GI/Abdominal Exam Details: PEG tube in place - Rectal Rectal Exam: POSITIVE: Deferred - External Exam: POSITIVE: Deferred Exam: POSITIVE: Deferred - Extremities Extremities Exam: POSITIVE: Normal Inspection - Back Back Exam: POSITIVE: Normal Inspection - Neurological Additional Neurological Exam Details: Sleepy but arousable. Follow commands. Appears generally weak but moves all limbs. - Integumentary Additional Integumentary Exam Details: Rash under the breast noted. Superficial ulceration accoring to The nursing staff in the buttocks. Results - Labs CBC and BMP: 04/03/18 04:44 04/02/18 19:26 - Imaging Status: Report Reviewed by Me (Chest X ray Hypoventilatory exam. No clear consolidation or vascular congestion. CT head There is extensive bilateral white matter hypoattenuation, which has increased in the interval. This is most pronounced in the frontal and the occipital lobes. CT chest No PE. Dependent atelectasis. 6 mm left thyroid lobe calcification, likely associated with a nodule.) Assessment and Plan - Patient Problems (1) Acute respiratory failure Current Visit: Yes Status: Acute Comment: Unclear reason, will put her on Vapotherm. Repeat her gases the morning. She is DO NOT RESUSCITATE. contineu antibiotics until we have culture results. Code(s): J96.00 - Acute respiratory failure, unspecified whether with hypoxia or hypercapnia (2) Lactate blood increased Current Visit: Yes Status: Acute Comment: Probably secondary to hypoxia will give her fluid will repeat in the morning Code(s): R79.89 - Other specified abnormal findings of blood chemistry (3) ALS (amyotrophic lateral sclerosis) Current Visit: Yes Status: Acute Comment: The patient said that he is the primary caregiver and he is willing to take her back home and he prefers that if she is able to regain her baseline function. Code(s): G12.21 - Amyotrophic lateral sclerosis (4) Depression Current Visit: Yes Status: Acute Comment: Continue previous medications Code(s): F32.9 - Major depressive disorder, single episode, unspecified
[2018-04-02] MEDS ORDERED: ACETAMINOPHEN 325 MG TABLET PO PRN (23:26)
[2018-04-02] MEDS ORDERED: ONDANSETRON 4 MG/2 ML VIAL IVP PRN (23:26)
[2018-04-02] MEDS ORDERED: LIDOCAINE W/ SODIUM BICARB 0.5 ML SYR SUBD PRN (23:26)
[2018-04-02] MEDS ORDERED: ACETAMINOPHEN 650 MG/20.3 ML CUP PO PRN (23:43)
[2018-04-03] MEDS: Sodium Chloride 0.9% 1,000 ML PRIMARY IV SCH ×3 (00:26→21:16)
[2018-04-03] MEDS: NYSTATIN 15 GM POWDER TOPICAL SCH ×4 (00:26→21:35)
[2018-04-03 04:55] LABS: VENOUS PH 7.33 (7.32-7.42)
[2018-04-03 05:32] LABS: BASOPHILS # (AUTO) 0.02 10*3/UL; BASOPHILS % (AUTO) 0.1 % (0-1); EOSINOPHILS # (AUTO) 0 10*3/UL; EOSINOPHILS % (AUTO) 0 % (0-8); Hematocrit [HCT] 38.3 % (37.0-47.0); Hemoglobin [HGB] 11.7 g/dL (12.0-16.0); LYMPHOCYTES # (AUTO) 0.94 10*3/uL; MEAN CORPUSCULAR HEMOGLOBIN 31.7 PG (27-31); MEAN CORPUSCULAR HGB CONC 30.5 g/dL (33-37); MEAN CORPUSCULAR VOLUME 103.8 FL (81-99); MONOCYTES # (AUTO) 1.07 10*3/UL (0.3-0.8); MONOCYTES % (AUTO) 7.8 % (5-15); NEUTROPHILS # (AUTO) 11.62 10*3/UL; NEUTROPHILS % (AUTO) 85.1 % (50-80); RED BLOOD COUNT 3.69 10^6/uL (4.20-5.40)
[2018-04-03 06:13] LABS: PLATELET MORPHOLOGY COMMENT NORMAL MORPHOLOGY (NORM); WBC MORPHOLOGY COMMENT NORMAL MORPHOLOGY (NORM)
[2018-04-03 06:14] LABS: RBC MORPHOLOGY COMMENT SEE COMMENTS (NORM)
--- NOTE | 2018-04-03 07:33 | PDOC(PROG) ---
Date and Time of Service: 04/03/2018 7:29 AM Interval History: Subjective Patient is or awake today, follow commands. Denying symptoms. She feels weak. Objective : Data - Labs CBC and BMP: 04/03/18 04:44 04/02/18 19:26 Objective : Exam - General General Appearance: No Acute Distress, Cooperative - Head Head Exam: Normal Inspection - Eye Eye Exam: Normal Appearance - ENT ENT Exam: Normal Exam - Neck Neck Exam: Normal Inspection - Respiratory Respiratory Exam: Clear to Auscultation - Bilaterally - Cardiovascular Cardiovascular Exam: RRR - GI/Abdominal GI/Abdominal Exam: Normal Bowel Sounds, Non Tender, Non Distended, Soft, No Organomegaly Additional GI/Abdominal Exam Details: PEG tube in place - Rectal Rectal Exam: Deferred - External Exam: Deferred - Extremities Extremities Exam: Normal Inspection, Pedal Edema - Back Back Exam: Normal Inspection - Neurological Neurological Exam: Alert, CN II-XII Intact, No Facial Droop Additional Neurological Exam Details: She is generally weak. She does not speak but she does respond appropriately. - Psychiatric Psychiatric Exam: Flat Affect Assessment and Plan - Patient Problems (1) Acute respiratory failure Current Visit: Yes Status: Acute Comment: Seems to be improving continue the Vapotherm. I think will continue antibiotics for another day until we have culture result. Her white count is down. Will ask PT and OT to work with her. Code(s): J96.00 - Acute respiratory failure, unspecified whether with hypoxia or hypercapnia (2) Lactate blood increased Current Visit: Yes Status: Acute Comment: That's normalized probably secondary to the hypoxia. Code(s): R79.89 - Other specified abnormal findings of blood chemistry (3) ALS (amyotrophic lateral sclerosis) Current Visit: Yes Status: Acute Comment: Did consult PT and OT to work with her. Code(s): G12.21 - Amyotrophic lateral sclerosis (4) Depression Current Visit: Yes Status: Acute Comment: Same medications Code(s): F32.9 - Major depressive disorder, single episode, unspecified
[2018-04-03] MEDS ORDERED: ESCITALOPRAM 10 MG TABLET PO SCH (09:00)
--- NOTE | 2018-04-03 16:47 | PT.PROG ---
Progress Note Progress Note: S. Patient agreed to sit in the chair. O. Patient transferred from supine to edge of bed then pivot transferred to the chair with ROHO cushion, Patient was left with alarm and call light. A. Patient tolerated transfer well, she continues to be weak however was able to transfer with less assist this afternoon compared to this morning. P. Continue POC.
[2018-04-03] MEDS: cefTRIAXone Inj 1 GM in Sodium Chloride 0.9% 100 ML IV SCH (20:14)
[2018-04-04 04:26] LABS: BASOPHILS # (AUTO) 0.03 10*3/UL; BASOPHILS % (AUTO) 0.3 % (0-1); EOSINOPHILS # (AUTO) 0.09 10*3/UL; EOSINOPHILS % (AUTO) 0.8 % (0-8); Hematocrit [HCT] 37.2 % (37.0-47.0); LYMPHOCYTES # (AUTO) 1.37 10*3/uL; MEAN CORPUSCULAR HEMOGLOBIN 31.2 PG (27-31); MEAN CORPUSCULAR HGB CONC 29.6 g/dL (33-37); MEAN CORPUSCULAR VOLUME 105.4 FL (81-99); MONOCYTES # (AUTO) 1.43 10*3/UL (0.3-0.8); MONOCYTES % (AUTO) 12.7 % (5-15); NEUTROPHILS # (AUTO) 8.33 10*3/UL; NEUTROPHILS % (AUTO) 73.8 % (50-80); RED BLOOD COUNT 3.53 10^6/uL (4.20-5.40)
[2018-04-04 04:45] LABS: BLOOD UREA NITROGEN 14 mg/dL (7-22); BUN/CREATININE RATIO 46.66 (6-20); SERUM ALBUMIN 2.9 g/dL (3.5-4.8)
[2018-04-04 05:24] LABS: PLATELET MORPHOLOGY COMMENT NORMAL MORPHOLOGY (NORM); WBC MORPHOLOGY COMMENT NORMAL MORPHOLOGY (NORM)
[2018-04-04 05:27] LABS: RBC MORPHOLOGY COMMENT SEE COMMENTS (NORM)
[2018-04-04] MEDS ORDERED: ESCITALOPRAM 5 MG/5 ML PEG SCH (09:00)
[2018-04-04] MEDS: Sodium Chloride 0.9% 1,000 ML PRIMARY IV SCH (09:25)
[2018-04-04] MEDS: NYSTATIN 15 GM POWDER TOPICAL SCH ×2 (09:26→14:46)
--- NOTE | 2018-04-04 09:55 | OT.PROG ---
Progress Note Progress Note: Occupational Therapy: S: pt agreed to therapy with use of head nod. pt said she has tendonitis in R UE and did not want to use it much in tx session due to pain. O: pt completed functional transfer from sitting to standing x2 MOD A. pt stood for 45 sec with MOD A for standing. pt completed L UE AROM exercises of flexion x5, abduction x5, shoulder shrugs x5. pt completed functional standing exercises to complete ADLs x 4 min with MOD A x2. pt completed ADL task of sponge bath with MAX A by nursing staff. A: pt tolerated session well. pt is motivated to complete therapy. P: continue POC
[2018-04-04] MEDS ORDERED: FUROSEMIDE 10 MG/1 ML - 4 ML IVP ONE ×2 (11:30→17:42)
[2018-04-04 12:02] LABS: VENOUS PH 7.34 (7.32-7.42)
[2018-04-04 13:42] LABS: BILIRUBIN,URINE NEGATIVE (NEG); CLARITY,URINE CLEAR (CLEAR); COLOR,URINE YELLOW (Y); GLUCOSE, URINE (UA) NEGATIVE (NEG); OCCULT BLOOD,URINE SMALL (NEG); PROTEIN,URINE NEGATIVE (NEG); UROBILINOGEN,URINE 0.2 EU/dL (0.2)
[2018-04-04 13:53] LABS: URINE SAMPLE TYPE CATH SPECIMEN
--- NOTE | 2018-04-04 13:53 | PDOC(PROG) ---
Interval History: Bebe cross patient with ALS. Communication but she does not her head and understands very well. I've explained the difference between Vapotherm and BiPAP and she has agreed to wear her BiPAP since her CO2 is going up. Objective : Data - Labs CBC and BMP: 04/04/18 04:01 04/04/18 04:01 Objective : Exam - General General Appearance: No Acute Distress, Cooperative - Respiratory Respiratory Exam: Decreased Breath Sounds - Cardiovascular Cardiovascular Exam: RRR, No Murmur, No Clicks, No Gallops, No Rubs, PMI Non- Displaced - GI/Abdominal GI/Abdominal Exam: Normal Bowel Sounds, Non Tender, Non Distended, Soft, No Masses, No Hepatomegaly, No Splenomegaly, No Organomegaly - Extremities Extremities Exam: +2 Edema - Neurological Neurological Exam: Alert Assessment and Plan - Patient Problems (1) ALS (amyotrophic lateral sclerosis) Current Visit: Yes Status: Acute Comment: Patient has a PEG tube this might be starting to affect her lung status with the retain CO2 I let the patient know and the family they are not interested in chronic ventilators at all Code(s): G12.21 - Amyotrophic lateral sclerosis (2) Acute respiratory failure Current Visit: Yes Status: Acute Comment: O's likely from CO2 retention secondary to emphysema or edema, also be from ALS worsening we'll start BiPAP repeat gases in 4 hours I recommended the patient wear BiPAP all night long and repeat gases in the morning as well Code(s): J96.00 - Acute respiratory failure, unspecified whether with hypoxia or hypercapnia (3) Lactate blood increased Current Visit: Yes Status: Acute Code(s): R79.89 - Other specified abnormal findings of blood chemistry (4) Depression Current Visit: Yes Status: Acute Code(s): F32.9 - Major depressive disorder , single episode, unspecified
--- NOTE | 2018-04-04 14:20 | PTI REPORT ---
Thank you for the referral of Khushi Perez. She was seen on 04/03/18 for an inpatient evaluation secondary to weakness. SUBJECTIVE: The patient is a 77-year-old female who presented to the ER yesterday after an episode of vomiting. The patient and her were sent back home. The patient states that she fell asleep in the afternoon and he was unable to wake her, so he did call for the ambulance and her oxygen saturation was very low. She was brought back to the hospital and admitted. She is doing better at this time. 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 The patient's also states she has been having some right shoulder issues as well. The patient's did provide all of the subjective information. He does state that prior to this hospital admittance the patient was able to walk short distances with a single point cane used in the left hand. He states she walked probably about 25 feet with assistance at times. He states she could get on and off the toilet by herself and up and down from the chair. He states that she primarily sleeps in a chair due to issues with breathing and swallowing. He states that they did try to use a walker but due to her more recent onset of the right shoulder pain, she has been having difficulties being able to use the walker or to get up at times secondary to pain. He states that she also has a history of pressure ulcers on her gluteal region which he takes care of at home. The patient's would like to have his spouse back home if she is able to return to her prior level of function from before she was admitted to the hospital. PAST MEDICAL HISTORY: Past medical history can be found in the patient's medical record. OBJECTIVE FINDINGS: General observations: The patient was alert upon the therapist's arrival. The patient was able to nod in response to if she was feeling better than yesterday. Otherwise, besides nodding, the patient is unable to give any verbal responses. Bed mobility: The patient was able to move from supine to seated edge of bed position with mod assist x2. Once sitting edge of bed the patient demonstrated fair seated balance and was able to sit for a couple of minutes. The patient required max assist of two to go from seated to supine. Strength: We did not formally perform manual muscle testing due to the patient' s overall muscle weakness and poor endurance secondary to her diagnosis. Transfers: The patient was able to perform a sit to stand transfer from the bed with the bed slightly elevated with contact guard assist x2. Once in standing, the nurse was present and we did check her gluteal region for any pressure ulcers. They are all healed at this time and some Calamine lotion was placed around the newly healed sores. We will continue to monitor these. We did discuss with the doctor getting a ROHO cushion for when the patient is up in the chair in order to provided pressure relief due to her history of pressure ulcers and her inability to un-weight herself appropriately. The patient was able to stand for approximately 1 minute before she collapsed down onto the bed. We had to have a controlled descent with two people to help set her down. ASSESSMENT: The patient has fair to poor rehab potential secondary to her medical diagnosis and her age. Problem List: Difficulty with transfers Patient is unable to ambulate at this time Generalized weakness Short-Term Goals: To be met by discharge from inpatient: Patient will be able to transfer from supine to stand with contact guard assist x1. Patient will be able to ambulate at least 25 feet with single point cane and no more than mod assist x1. Patient will be issued a ROHO cushion and her spouse will be instructed on proper use in order to provide pressure relief. We will continue to monitor for any development of pressure ulcers and continue to utilize pressure relieving devices to prevent any future pressure ulcers. Long-Term Goals: To be met following discharge from inpatient: Prior to discharge, the patient may be appropriate for a home evaluation in order to determine the set up if she is able to return back home. TREATMENT PLAN: Patient will be seen one time per day during the week and one time per day over the weekend as an inpatient to work on transfers and short distance ambulation as the patient is able to tolerate. INITIAL TREATMENT: Treatment today consisted of the initial evaluation. The patient was left in bed with head of bed elevated and her call light within reach. [facility]ITALTracy
--- NOTE | 2018-04-04 14:55 | OTI REPORT ---
Thank you for the referral of Khushi Perez. She was seen on 04/03/18 for an occupational therapy inpatient evaluation secondary to weakness. SUBJECTIVE: The patient is a 77-year-old female who was admitted to the hospital with a diagnosis of ALS. The patient was at home taking a nap and per her 's report he was unable to wake her. When the EMT arrived, she was unresponsive at that time as well. She was admitted to the hospital yesterday and is now being seen by occupational therapy and physical therapy for weakness. The patient's primary caregiver is her . They live here in [place] and she has continually gotten weaker, which is typical with a diagnosis of ALS. The patient is unable to communicate verbally at this time secondary to the diagnosis. She does have a history of pressure ulcers. The patient's helped provide her past medical history and background information. The patient has a history of right shoulder pain. At prior level of function she was able to ambulate short distances from 10-25 feet with use of a cane in her left hand. She has tried a walker in the past; however, she had difficulty with this due to right shoulder pain and weakness in that right arm. She typically sleeps in a chair due to being in an upright posture. At prior level of function the patient was able to get up out of the chair independently. She was able to get on and off of the toilet independently. She required minimal assistance to perform short ambulation tasks. She required assistance to complete showering tasks from her at home. He also provided assistance for meal preparation, cooking, cleaning, etc. as the patient fatigues very quickly. Equipment at home includes a toilet riser as well as a shower chair. The patient has a cane as well as a walker. PAST MEDICAL HISTORY: Past medical history can be found in the patient's medical record. OBJECTIVE FINDINGS: Bed mobility: The patient demonstrated the ability to move from sitting propped up in bed to sitting edge of bed with moderate assistance to move bilateral lower extremities. She tolerated sitting up at edge of bed x5 minutes. Transfers: The patient did perform a sit to stand transfer from edge of bed with mod assist x2 and tolerated standing x2 minutes; however, the patient was unable to provide a warning when her legs gave out, placing the patient at a HIGH fall risk. General observations: The patient is able to answer yes or no questions by nodding. The patient is unable to verbally communicate at this time. The patient is able to use her upper extremities to suction. The patient is on high forced air oxygen. ASSESSMENT: Problem List: Decreased endurance/activity tolerance Decreased strength Decreased ability to perform ADLs Short-Term Goals: To be met by discharge from inpatient: Patient will demonstrate the ability to complete toileting task with minimal assistance. Patient will demonstrate the ability to complete upper extremity dressing with set up assistance. Patient will demonstrate the ability to complete lower extremity dressing with minimal assistance or with the use of adaptive equipment as needed. Patient will demonstrate the ability to complete bed mobility tasks to include moving from supine to sit and from sit to supine as well as rolling in bed with minimal assistance. Patient will demonstrate the ability to complete light grooming activities while seated with modified independence. Patient and her primary caregiver will be educated in the use of energy conservation techniques. Long-Term Goals: To be met following discharge from inpatient: Patient will return home with her as primary care provider as close to baseline as possible. Patient will participate in a home evaluation to determine appropriate equipment and assistance needed at home prior to discharge. TREATMENT PLAN: Patient will be seen one time per day during the week and one time per day over the weekend as an inpatient to address the above goals and objectives. INITIAL TREATMENT: Treatment today consisted of the initial evaluation followed by bed mobility tasks including moving from supine to sitting edge of bed and a standing task. GUY
--- NOTE | 2018-04-04 15:18 | PT.PROG ---
Progress Note Progress Note: S: Pt agreed to therapy including standing and walking a couple steps. O: Pt was set up on BiPap machine. Tx consisted of transfer from chair to standing with single point cane and mod A x2. Pt walked 10 steps forward and transferred back to sitting with mod A x2. Pt repeated walking for a second time. Pt was left in chair on Bipap machine with and daughter. A: Pt performed standing balance, walking, and marching well. Pt fatigued and needed to sit after second walk. Pt does well with written communication in notebook. P: Pt will continue to benefit from skilled therapy to work on functional activity.
[2018-04-04 20:10] VITALS: TEMP 98.3; O2SAT 98
--- NOTE | 2018-04-04 20:35 | EKG ---
[address] [address] Measurements Intervals [place] Rate: 125 P: [place]: 0 QRS: 51 QRSD: 130 T: -31 QT: 330 QTc: 404 Interpretive Statements ATRIAL FIBRILLATION WITH RAPID VENTRICULAR RESPONSE RIGHT BUNDLE BRANCH BLOCK [120+ ms QRS DURATION, UPRIGHT V1, 40+ ms S IN I/aVL/V4/V5/V6] NONSPECIFIC ST-T WAV CHANGESCompared to ECG 04/02/2018 19:37:03 Sinus rhythm no longer present Electronically Signed On 04-06-18 18:39:42 MDT by Levi Flores [email or web address]
[2018-04-04] MEDS: cefTRIAXone Inj 1 GM in Sodium Chloride 0.9% 100 ML IV SCH (20:38)
[2018-04-04] MEDS ORDERED: Sodium Chloride 0.9% 1,000 ML ONE (20:44)
[2018-04-04] MEDS ORDERED: Diltiazem Drip 125 MG in Sodium Chloride 0.9% 100 ML IV SCH (20:45)
[2018-04-04 21:04] LABS: VENOUS PH 7.33 (7.32-7.42)
--- NOTE | 2018-04-04 21:24 | DCSUMMARY ---
Hospitalization Summary Hospital Course: Final Discharge Diagnosis: Current Visit Problems Problem Status Onset Code Altered mental status Acute R41.82 Respiratory acidosis Acute E87.2 ALS (amyotrophic lateral sclerosis) Acute G12.21 Acute respiratory failure Acute J96.00 Lactate blood increased Acute R79.89 Depression Acute F32.9 Diagnostic Data, Laboratory Data, and Procedures of Signifigance: CBC and BMP 04/04/18 04:01 04/04/18 04:01 Abnormal Lab Results (Last 24 Hours) Range/Units 04/04/18 04/04/18 04/04/18 04:01 04:01 11:54 WBC (4.8-10.8) 10^3/uL 11.28 H RBC (4.20-5.40) 10^6/uL 3.53 L Hgb (12.0-16.0) g/dL 11.0 L MCV (81-99) FL 105.4 H MCH (27-31) PG 31.2 H MCHC (33-37) g/dL 29.6 L RDW Std Deviation (39-50) fL 50.6 H [place] # (Auto) (0.3-0.8) 10*3/UL 1.43 H VBG pCO2 (45-55) mmHg 59 H VBG HCO3 (22-26) mmol/L 32 H VBG Base Excess (-2-2) MMOL/L 7 H Creatinine (0.50-1.20) mg/dL 0.3 L BUN/Creatinine Ratio (6-20) 46.66 H Calcium (8.7-10.7) mg/dL 8.2 L Total Bilirubin (0.3-1.2) mg/dL 0.2 L Total Protein (6.1-8.0) g/dL 5.7 L Albumin (3.5-4.8) g/dL 2.9 L Albumin/Globulin Ratio (1.3-2.0) mg/g 1.00 L Urine Occult Blood (NEG) Range/Units 04/04/18 04/04/18 13:30 20:23 WBC (4.8-10.8) 10^3/uL RBC (4.20-5.40) 10^6/uL Hgb (12.0-16.0) g/dL MCV (81-99) FL MCH (27-31) PG MCHC (33-37) g/dL RDW Std Deviation (39-50) fL [place] # (Auto) (0.3-0.8) 10*3/UL VBG pCO2 (45-55) mmHg 71 H VBG HCO3 (22-26) mmol/L 38 H VBG Base Excess (-2-2) MMOL/L 12 H Creatinine (0.50-1.20) mg/dL BUN/Creatinine Ratio (6-20) Calcium (8.7-10.7) mg/dL Total Bilirubin (0.3-1.2) mg/dL Total Protein (6.1-8.0) g/dL Albumin (3.5-4.8) g/dL Albumin/Globulin Ratio (1.3-2.0) mg/g Urine Occult Blood (NEG) Small H History and Physical pertinent to Admission: Past Medical History Medical History: 1. 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 2. History of depression Surgical History: 1. History of cholecystectomy. 2. History of left carotid endarterectomy. 3. Status post the PEG placement. 4. History of hysterectomy. 5. Bladder sling surgery. 6. History of left knee surgery Family History: Reviewed an Not Pertinent Past Social History: Never smoked doesn't drink no drugs. Lives with her was the primary caregiver. Tobacco Use: Never Smoker Course of Hospitalization: This very nice 77-year-old female with a history of bulbar ALS, was initially brought to the hospital for being unresponsive after evaluation in the ER also had some nausea and vomiting and multiple tests were run which were nonrevealing receive some Zofran and IV fluids were felt better and was discharged home later that day she went home and took a nap with her and mesh patient was obtunded and unable to wake up and down EMS was called when they arrived her saturation was around 40% she was placed on high flow oxygen and brought to the ER over the last few days she was started on antibiotics her initial gas was 7.26 with a CO2 of [address] scan of the chest revealed no PE no pneumonia CT of the head the changes consistent with ALS patient and does not want to do BiPAP show she opted for Vapotherm today to gases were a little worse and now were not improving I talked to the patient and the family daughter and I explained the difference between the BiPAP and Vapotherm and they have agreed with the BiPAP after 3-1/2 hours blood gases were not any better with a CO2 of 77 and a pH of 7.33. Also the patient and the just went into A. fib RVR and Cardizem drip was started. I've talked to the family and the patient I told him that I would do my best here with, but did not have any sap basis consultant neurology or pulmonary ER option would be to be transferred to [facility] where multiple specialties are available and could offer more advanced care for this patient with the ALS A. fib RVR with cardiology and neurology and possible pulmonary consult the patient wanted to go to [place] this is where her primary care physician is and also her neurologist. Family also agreed with the patient and the transfer was initiated at talked to Dr. Roberto in the ER which accepted the patient. She is also being diuresed with Lasix +2 edema On the date of discharge, the patient was examined: Gen.: [No acute distress, alert, nontoxic] Heart: [Regular rate and rhythm, no murmurs, clicks, gallops, or rubs] Lungs: [Clear to auscultation bilaterally, breathing is nonlabored] Abdomen/GI: [Normal tones on auscultation, soft, nontender, nondistended] Musculoskeletal/extremities: [No clubbing, cyanosis, or edema] Vitals reviewed and are listed below Vital Signs (24 hrs) Temp Pulse Resp BP Pulse Ox 04/04/18 20:09 98.3 F 132 H 22 114/76 98 04/04/18 19:00 132 H 04/04/18 17:43 97.9 F 88 18 124/58 100 04/04/18 12:57 97.2 F 81 16 107/49 100 04/04/18 08:38 98.1 F 79 18 115/57 99 04/04/18 07:00 97 04/04/18 04:10 97.4 F 79 20 118/69 97 04/04/18 01:00 98.1 F 75 18 100/68 96 Assessment and Plan: 1. As per discharge assessments above 2. Disposition: Transferred to [facility] ambulance unable to do BiPAP I think patient needs BiPAP even off for the next hour I would be detrimental there for life flight was contacted and they are able to transfer her 3. Condition on discharge, stable and improved. 4. Diet: regular diet 5. Activities: resume normal activities 6. Follow-Up: 1. [PCP] 2. 7. Medications at the Time of Discharge: Home Medications 3 Medication Instructions Recorded Confirmed Type Amitriptyline HCl 10 mg PO DAILY 03/19/16 04/02/18 History Carboxymethylcell/Glycerin/Pf 1 ea OP DAILY 03/19/16 04/02/18 History [Optive Sensitive Eye Drops] Acetaminophen Liq [Tylenol Liq] 1,500 mg PO BID PRN 05/05/17 04/02/18 History Ranitidine HCl [Zantac] 50 mg PO BID 05/13/17 04/02/18 History Escitalopram Oxalate [Lexapro] 10 mg PO DAILY 08/13/17 04/02/18 History Ondansetron Odt [Zofran ODT] 4 mg PO Q6H PRN #10 tab.rapdis 04/02/18 Rx Active Medications Generic Name Dose Route Start Last Admin Trade Name Freq PRN Reason Stop Dose Admin Acetaminophen 650 mg 04/02/18 23:26 Tylenol PO Q6H PRN Pain or Fever Acetaminophen 650 mg 04/02/18 23:43 04/03/18 21:42 Tylenol Liq PO 650 mg Q6H PRN Administration Pain Furosemide 40 mg 04/05/18 07:00 Lasix Inj IVP BID@0700,1300 [facility] Ceftriaxone Sodium 1 gm/ 100 mls @ 200 mls/hr 04/03/18 21:00 04/04/18 20:38 Sodium Chloride IV 200 mls/hr Q24H JANES Administration Diltiazem HCl 125 mg/ Sodium 125 mls @ 10 mls/hr 04/04/18 20:45 04/04/18 20: 52 Chloride IV 10 mg/hr .TITRATE AJNES 10 mls/hr Administration Protocol 10 MG/HR Lidocaine HCl 0.5 ml 04/02/18 23:26 Lidocaine Buffered Inj SUBD ONCE PRN IV Starts Amitriptyline Hcl 10 10 mg 04/03/18 14:00 04/04/18 20:39 Mg Tab PEG 10 mg TID@1000,1400,2100 JANES Administration Own Med : 1 04/04/18 09:00 04/04/18 09:26 Escitalopram 5mg/5ml PEG 1 Solution DAILY JANES Administration Nystatin 1 applic 04/02/18 23:45 04/04/18 14:46 Mycostatin Powder TOPICAL 1 applic TID JANES Administration Ondansetron HCl 4 mg 04/02/18 23:26 Zofran Inj IVP Q4H PRN NAUSEA / VOMITING 8. Time, care, counseling and coordination of care for this discharge is greater than 30 minutes. Exam - Vitals Vital Signs: Vital Signs Temperature 98.3 F Temperature Source Temporal Artery Scan Pulse Rate [Pulse Oximeter] 132 Pulse Rate 88 Respiratory Rate 22 Blood Pressure [Right Arm] 114/76 Blood Pressure 133/82 Pulse Ox 98 Oxygen Flow Rate 5 Oxygen Delivery Method Nasal Cannula Height 5 ft 5 in Weight 150 lb 3.2 oz Patient Problems - Patient Problem List (1) ALS (amyotrophic lateral sclerosis) Current Visit: Yes Status: Acute Code(s): G12.21 - Amyotrophic lateral sclerosis Category: Medical (2) Acute respiratory failure Current Visit: Yes Status: Acute Code(s): J96.00 - Acute respiratory failure , unspecified whether with hypoxia or hypercapnia Category: Medical (3) Lactate blood increased Current Visit: Yes Status: Acute Code(s): R79.89 - Other specified abnormal findings of blood chemistry Category: Medical (4) Depression Current Visit: Yes Status: Acute Code(s): F32.9 - Major depressive disorder , single episode, unspecified Category: Medical
[2018-04-04] MEDS ORDERED: Magnesium Sulfate 2gm (Premix) 2 GM/50 ML BAG IV ONE ×2 (21:43→21:46)
[2018-04-04 22:03] VITALS: BP 85/61; RESP 16
[2018-04-05] MEDS ORDERED: FUROSEMIDE 10 MG/1 ML - 4 ML IVP SCH (07:00)
== END 2018-04-04 22:45 | disposition short-term general hospital (02) | DRG 947 ==
LOC: ER 19:42 → MED/SURG 22:33
PROVIDERS: ADMIT Internal Medicine; ATTEND Internal Medicine